=== PATIENT | female | born 1950 | race Caucasian/White ===

== ENCOUNTER 2017-09-22 07:12 | Day surgery (SDC) | payer OTHER ==
[~2017-09-22] VITALS: Ht 160 cm; Wt 126.8 kg
[~2017-09-22 07:12] MED LIST: ALBIPROI; ALBIPROI INH; ALBU.083IS; ALBU90OI INH; ASCO500 PO; ASPI81EC; Advair Hfa 230-12 GM INH; Amaryl1 MG PO; BENAML10/5; BENAML20/5; BUPR100 PO; BUPR150T2; BUPR75 PO; CALCAVITD PO; CALCIUM ANTACI200 MG PO; CEPH500; CEPH500 PO; CHOL10002 PO; CLARITIN10 MG PO; CLON.5; CLON.5 PO; COMBIVENT RESPIM4 GM; CYCL10 PO; ENABLEX; EZET10; FLUSAL1005; FLUSAL1005 IH; FURO40; FURO40 PO; FURO80; Ferrous Sulfat325 M2 PO; GABA300; GABA600; GABA600 PO; GEMF600; GEMF600 PO; GLIM2 PO; HYDACE10B PO; HYDACE5; HYDACE5 PO; HYDACE7.5; IBUHYD; LORA10ER PO; LOVA40; MECL25 PO; METF500C; METO2.5; METO2.5 PO; METO25ER; MIRALAX17 GM PO; MULVITMINE; Medi-Meclizine25 MG PO; NAPR500 PO; Norco 5-325 Ta1 EACH PO; OMEP20ER; OXYB5 PO; OXYC5 PO; PIOG15; PIOG45 PO; POTA8; POTASSIUM; POTCHL20ER; POTCHL20ER PO; PROACE100 PO; PROM25 PO; Prilosec Otc20 MG PO; QUIN325; ROSU10TA PO; RXPROACE PO; SENN187 PO; SERT100; SERT100 PO; SPIR25 PO; Senna Laxative8.6 MG; TRAZ100; TRAZ100 PO; TRAZ50
== END 2017-09-22 22:49 | disposition home or self-care (01) ==
LOC: MHTC 07:12
PROC: 3E033TZ Introduction of Destructive Agent into Peripheral Vein, Percutaneous Approach (ICD-10-PCS; principal; 2017-09-22)
DX: I83.811 Varicose veins of right lower extremity with pain (principal); I87.2 Venous insufficiency (chronic) (peripheral); E66.01 Morbid (severe) obesity due to excess calories; I12.9 Hypertensive chronic kidney disease with stage 1 through stage 4 chronic kidney disease, or unspecified chronic kidney disease; E11.42 Type 2 diabetes mellitus with diabetic polyneuropathy; J44.9 Chronic obstructive pulmonary disease, unspecified; E11.22 Type 2 diabetes mellitus with diabetic chronic kidney disease; N18.9 Chronic kidney disease, unspecified; E78.5 Hyperlipidemia, unspecified; F32.9 Major depressive disorder, single episode, unspecified; F17.210 Nicotine dependence, cigarettes, uncomplicated; G47.33 Obstructive sleep apnea (adult) (pediatric)
CPT/HCPCS: 36466; 99152; J2250; J3010; J7030

== ENCOUNTER 2017-10-11 19:15 | Emergency (ER) | payer OTHER ==
[~2017-10-11] VITALS: Ht 160 cm; Wt 131.5 kg
[2017-10-11] MEDS ORDERED: Percocet 5-3251 EACH PO (20:11)
== END 2017-10-11 20:49 | disposition home or self-care (01) ==
LOC: ER 19:15
DX: S42.215A Unspecified nondisplaced fracture of surgical neck of left humerus, initial encounter for closed fracture (principal); Z88.0 Allergy status to penicillin; Z88.5 Allergy status to narcotic agent; Z79.899 Other long term (current) drug therapy; Z79.84 Long term (current) use of oral hypoglycemic drugs; E11.9 Type 2 diabetes mellitus without complications; F17.200 Nicotine dependence, unspecified, uncomplicated; W18.30XA Fall on same level, unspecified, initial encounter
CPT/HCPCS: 73060; 99283

== ENCOUNTER 2017-10-19 09:53 | Emergency (ER) | payer OTHER ==
[~2017-10-19] VITALS: Ht 167.6 cm; Wt 113.4 kg
[~2017-10-19 09:53] MED LIST changes: +Percocet 5-3251 EACH PO
[2017-10-19] MEDS ORDERED: Percocet 5-3251 EACH PO (10:14)
== END 2017-10-19 10:21 | disposition home or self-care (01) ==
LOC: ER 09:53
DX: S42.212D Unspecified displaced fracture of surgical neck of left humerus, subsequent encounter for fracture with routine healing (principal); E11.9 Type 2 diabetes mellitus without complications; J44.9 Chronic obstructive pulmonary disease, unspecified; I10 Essential (primary) hypertension; E66.01 Morbid (severe) obesity due to excess calories; F32.9 Major depressive disorder, single episode, unspecified; Z88.0 Allergy status to penicillin; Z88.5 Allergy status to narcotic agent; Z79.84 Long term (current) use of oral hypoglycemic drugs; Z79.899 Other long term (current) drug therapy; Z68.41 Body mass index [BMI] 40.0-44.9, adult; Z87.891 Personal history of nicotine dependence; W19.XXXD Unspecified fall, subsequent encounter
CPT/HCPCS: 99282

== ENCOUNTER 2018-04-21 07:16 | Day surgery (SDC) | payer OTHER ==
[~2018-04-21] VITALS: Ht 160 cm; Wt 126.5 kg
== END 2018-04-21 09:19 | disposition home or self-care (01) ==
LOC: ORSCSDS 07:16
PROVIDERS: Ophthalmology
PROC: 08RK3JZ Replacement of Left Lens with Synthetic Substitute, Percutaneous Approach (ICD-10-PCS; principal; 2018-04-21 08:00)
DX: H25.12 Age-related nuclear cataract, left eye (principal); E11.36 Type 2 diabetes mellitus with diabetic cataract; E11.42 Type 2 diabetes mellitus with diabetic polyneuropathy; E05.90 Thyrotoxicosis, unspecified without thyrotoxic crisis or storm; J44.9 Chronic obstructive pulmonary disease, unspecified; I10 Essential (primary) hypertension; G47.33 Obstructive sleep apnea (adult) (pediatric); Z79.899 Other long term (current) drug therapy; E78.00 Pure hypercholesterolemia, unspecified; E66.01 Morbid (severe) obesity due to excess calories; Z68.42 Body mass index [BMI] 45.0-49.9, adult
CPT/HCPCS: 82947; J2250; V2632

== ENCOUNTER 2018-11-30 08:10 | Day surgery (SDC) | payer OTHER | END 2018-11-30 22:39 | disposition home or self-care (01) | LOC: MOI US 08:10 | DX: C50.912 Malignant neoplasm of unspecified site of left female breast (principal); Z17.0 Estrogen receptor positive status [ER+] | CPT/HCPCS: 19083; 77065; 88305; 88360; A4648; G0279 ==

== ENCOUNTER 2018-12-23 06:08 | Day surgery (SDC) | payer OTHER ==
[~2018-12-23] VITALS: Ht 160 cm; Wt 123.3 kg
--- NOTE | 2018-12-23 10:20 | NUR ---
12/23/18 1020 Baljeet Kim CHEST X-RAY TAKEN, REPORT FROM DR. SMITH STATES, "POSSIBLE MINOR PULMONARY EDEMA OR INFECTION." NOTIFIED DR. KENNEY.
== END 2018-12-23 09:44 | disposition home or self-care (01) ==
LOC: ORSCSDS 06:08
PROVIDERS: Surgery
PROC: 05HM33Z Insertion of Infusion Device into Right Internal Jugular Vein, Percutaneous Approach (ICD-10-PCS; principal; 2018-12-23 07:30)
PROC: B5131ZA Fluoroscopy of Right Jugular Veins using Low Osmolar Contrast, Guidance (ICD-10-PCS; principal; 2018-12-23 07:30)
DX: C50.412 Malignant neoplasm of upper-outer quadrant of left female breast (principal); C79.51 Secondary malignant neoplasm of bone; E11.22 Type 2 diabetes mellitus with diabetic chronic kidney disease; E11.40 Type 2 diabetes mellitus with diabetic neuropathy, unspecified; I12.9 Hypertensive chronic kidney disease with stage 1 through stage 4 chronic kidney disease, or unspecified chronic kidney disease; N18.9 Chronic kidney disease, unspecified; J44.9 Chronic obstructive pulmonary disease, unspecified; F17.210 Nicotine dependence, cigarettes, uncomplicated; G47.33 Obstructive sleep apnea (adult) (pediatric); Z79.899 Other long term (current) drug therapy
CPT/HCPCS: 77001; 82947; C1788; J0690; J1100; J1642; J2001; J2250; J2405; J2704; J7120

== ENCOUNTER 2019-07-09 07:39 | Inpatient (IN) | payer OTHER ==
[~2019-07-09] VITALS: Ht 160 cm; Wt 110.3 kg
[~2019-07-09 07:39] MED LIST changes: -COMBIVENT RESPIM4 GM; +COMBIVENT RESPIM4 GM INH; -Senna Laxative8.6 MG; +Senna Laxative8.6 MG PO; +Spironolactone25 MG PO; +THERA1 EACH PO; +Zantac150 MG PO
--- NOTE | 2019-07-09 09:46 | NUR ---
History, Chart, Medications and Allergies reviewed before start of procedure. Patient confirms NPO status and agrees with scheduled surgery. Lungs clear T/O to Auscultation. Pre-Op teaching done. Pt verbalizes understanding. Patient reports completing Chlorhexadine shower X2 prior to admission to hospital. PATIENT HAD NO JEWELRY ON AT ADMIT, DENTURES AND GLASSES WILL BE TAKEN TO PACU. NO CONTACTS OR HEARING DEVICES PRESENT.
--- NOTE | 2019-07-09 09:52 | NUR ---
WAFER FAB OPERATOR REPORT COMPLETED AT BEDSIDE WITH JAILYN MOSQUEDA.
--- NOTE | 2019-07-09 10:20 | NUR ---
PT'S FRIEND, SHAMIR, HAS THE PT'S GLASSES.
--- NOTE | 2019-07-09 17:23 | NUR ---
SHIFT SUMMARY PT ADMITTED TO ROOM AT 1530 S/P L MASTECTOMY, GAUZE/YONNY WRAP/BREAST BINDER, 2 NANCY DRAINS W/ SANGUINOUS OUT. DENIES PAIN AT THIS TIME. VSS, 4L NC; CPAP W/3L OXYGEN BLEED, AND BIOX ORDER IN - AWAITING SET UP BY RT. WILL REPORT TO ONCOMING ILSA GLASER.
--- NOTE | 2019-07-10 04:05 | NUR ---
SHIFT SUMMARY POD 1 S/P LEFT MASTECTOMY W/AXILLARY DISECTION AND NODE REMOVAL. YONNY WRAP AND BREAST BINDER IN PLACE AND APPEAR C/D/I; NO DRAINAGE NOTED T/O SHIFT. NANCY DRAINS #[address], COMPRESSED, AND DRAINING SANGUINEOUS FLUID. VERY DROWSY T/O MOST OF SHIFT, RESPONDS TO STIMULATION AND ABLE TO FOLLOW DIRECTIONS. DENIED PAIN OR DYSCOMFORT. ABLE TO ASSIST WITH REPOSITIONING AND ATTENDS CHANGE. HAD BOTH CONTINENT AND INCONTINENT VOIDS. CPAP IN PLACE W/4L AND SPO2 AT 94%. DENIED SOB OR DYSPNEA. IS CURRENTLY RESTING IN BED WITH CPAP IN PLACE AND CALL LIGHT W/IN REACH.
[2019-07-10 05:18] LABS: BASOPHILS ABSOLUTE AUTO 0.01 K/mm3 (0.00-0.23); BASOPHILS PERCENT AUTO 0 % (0-2); EOSINOPHILS ABSOLUTE AUTO 0.01 K/mm3 (0.00-0.68); EOSINOPHILS PERCENT AUTO 0 % (0-6); Hematocrit 31.3 % (33.0-51.0); Hemoglobin 9.6 g/dL (11.5-16.0); IMMATURE GRAN ABSOLUTE AUTO 0.04 K/mm3 (0.00-0.10); IMMATURE GRAN PERCENT AUTO 0 % (0-1); LYMPHOCYTES ABSOLUTE AUTO 0.73 K/mm3 (0.84-5.20); LYMPHOCYTES PERCENT AUTO 8 % (21-46); MONOCYTES ABSOLUTE AUTO 0.61 K/mm3 (0.16-1.47); MONOCYTES PERCENT AUTO 7 % (4-13); Mean Corpuscular HGB Conc 30.7 g/dL (31.5-36.5); Mean Corpuscular Volume 108 fL (80-100); Mean Platelet Volume 9.8 fL (9.1-12.4); NEUTROPHILS ABSOLUTE AUTO 7.55 K/mm3 (1.96-9.15); NEUTROPHILS PERCENT AUTO 84 % (41-73); Platelet Count 291 K/mm3 (150-400); RDW Coefficient Variation 13.8 % (11.7-14.2); RDW Standard Deviation 54.2 fL (35.1-46.3); Red Blood Cell Count 2.91 M/mm3 (3.80-5.20); White Blood Cell Count 8.95 K/mm3 (4.00-11.30)
[2019-07-10 05:37] LABS: Anion Gap 7 mmol/L (6-16); Blood Urea Nitrogen 14 mg/dL (8-24); Bun/Creatinine Ratio 20.3 (12.0-20.0); CO2, Blood 28 mmol/L (21-32); Calcium, Blood 8.3 mg/dL (8.5-10.1); Chloride, Blood 109 mmol/L (98-108); Creatinine, Blood 0.69 mg/dL (0.40-1.00); Glomerular Filtration Rate >60 (60-); Glucose, Blood 101 mg/dL (70-99); Potassium, Blood 3.8 mmol/L (3.5-5.5); Sodium, Blood 144 mmol/L (136-145)
--- NOTE | 2019-07-10 15:26 | NUR ---
NANCY DRAIN EDUCATION PT WAS ABLE TO EMPTY HER NANCY DRAINS WITH MINIMAL PROMPTING. PT'S ROOMMATE IS WORKING TO HELP FIND FRIENDS/FAMILY WHO WILL BE ABLE TO CHECK ON HER OVER THE NEXT WEEK SINCE HER ROOMMATE WILL NOT BE HOME.
--- NOTE | 2019-07-10 18:02 | NUR ---
SHIFT SUMMARY PAIN HAS BEEN MANAGED WITH PO PAIN MEDICATION. PT HAS CONTINUED TO HAVE MILD CONFUSION/FORGETFULNESS T/O THE DAY. SHE WAS ABLE TO DEMONSTRATE HOW TO EMPTY HER NANCY DRAINS WITH MINIMAL PROMPTING. PT IS A 1 ASSIST WITH GAIT BELT AND WALKER WHEN OOB. TAB ALARM/ BED ALARM HAVE BEEN USED FOR SAFETY SINCE PT IS FORGETFUL AT TIMES. FAMILY AND FRIENDS ARE TRYING TO FIND HELP FOR HER WHEN SHE DISCHARGES HOME; STAFF AND FAMILY HAVE CONCERNS THAT THE PT WILL BE UNABLE TO MANAGE WITHOUT ASSISTANCE. POSSIBLE NEED FOR SNF. PT CONTINUES TO HAVE OUTPUT FROM HER NANCY DRAINS. VSS. WILL MONITOR UNTIL REPORT TO ONCOMING RN.
--- NOTE | 2019-07-11 07:00 | NUR ---
DR. KENNEY ROUNDED ON PT THIS AM TO CHANGE DRESSING. PT WAS ENCOURAGED TO DEMONSTRATE DRESSING CHANGE AND HOW TO EMPTY NANCY DRAIN. WHEN ASKED TO DEMONSTRATE WHAT SHOULD BE DONE WITH THE BULB AFTER IT IS EMPTIED SHE PUT THE CAP BACK ON WITHOUT COMPRESSING THE BULB TO CREATE SUCTION; PT HAS BEEN PREVIOUSLY EDUCATED ABOUT DRAIN CARE. PT WAS UNABLE TO CHANGE HER OWN DRESSING WHICH SHE WILL NEED TO BE ABLE TO DO AT HOME, SHE WAS UNABLE TO PUT HER BREAST BINDER BACK ON AFTER IT WAS REMOVED FOR THE DRESSING CHANGE. IN ADDITION PT WAS UNABLE TO SIT UP FROM A LAYING POSITION WITHOUT ASSISTANCE. SHE REPORTS HER BED IS FLAT WITHOUT HANDLES OR RALES AT HOME. THIS IS ALL OF CONCERN SINCE THE PT WILL NOT HAVE ANYONE TO ASSIST HER AT HOME. HER ROOMMATE WILL BE OUT OF TOWN FOR APPROXIMATELY 1 WEEK, AND FAMILY IS UNABLE TO COME HELP HER AT THIS TIME. PLAN FOR PT TO REMAIN IN HOSPITAL UNTIL TOMORROW WHEN SHE CAN BE EVALUATED BY OCCUPATIONAL THERAPY. PT IS AGREABLE TO SNF IF THAT IS POSSIBLE.
--- NOTE | 2019-07-11 07:34 | NUR ---
PT AWAKE THIS AM WITH DR PABLITO LOPEZ.PT WEAK AND UNCOMFORTABLE WITH ACTIVITY WHILE ATTEMPTING TO WORK DRESSING CHANGE AND JPX2.
--- NOTE | 2019-07-11 10:02 | NUR ---
IV DRESSING CHANGED PT ATTEMPTED TO CLEAN HERSELF AFTER HAVING A BOWEL MOVEMENT, STOOL GOT ON HER IV DRESSING WHEN SHE ATTEMPTED TO CLEAN HERSELF. AREA AROUND IV CLEANSED AND IV DRESSING WAS CHANGED.
--- NOTE | 2019-07-11 18:12 | NUR ---
SHIFT SUMMARY PAIN HAS BEEN MANAGED WITH PO PAIN MEDICATION. SHE HAS BEEN FORGETFUL T/O THE DAY. PT HAS BEEN UNABLE TO EMPTY HER DRAINS WITHOUT PROMPTING. PLAN FOR OT AND PT TO SEE PT TOMORROW, PLAN FOR SNF IF POSSIBLE. PT TOLERATING PO WELL. VSS. WILL MONITOR UNTIL REPORT TO ONCOMING RN.
--- NOTE | 2019-07-12 00:23 | NUR ---
ASSUMED CARE OF PT. PT RESTING IN CHAIR, RESP E/U, SATS 94%, HR 74. NO DISTRESS NOTED. TAB ALARM ON. WILL CONT TO MONITOR AND TX PER ORDERS.
--- NOTE | 2019-07-12 06:15 | NUR ---
POD 3 S/P LEFT MASTECTOMY. PT VSS T/O NIGHT. PAIN MGD PER EMAR W/REP RELIEF. NANCY PUTTING OUT SS DRNG. DRAIN #1 W/MORE OUTPUT. PT UP IN ROOM W/FWW+SBA, KAIT WELL. PT FORGETFUL AT TIMES, TAB ALARM ON FOR SAFETY. WILL CONT TO MONITOR UNTIL REP GIVEN TO ONCOMING RN.
--- NOTE | 2019-07-12 08:28 | NUR ---
07/12/19 0828 Morenita Hoover VERIFICATIONS: EDIT CHART.
--- NOTE | 2019-07-12 15:17 | NUR ---
Kisha tells me that she has been under-going cancer treatments for 2 years. With this surgery, she beleives she is cured. She has a emelia todd and [employer] community. She was appreciaitve of spiritual encouragement and prayer. No fears or concerns presented. Kisha appears well cared-for by nursing. I will remain available.
--- NOTE | 2019-07-12 15:54 | NUR ---
DISCHARGE MS INTO SEE DR PRIOR TO D/C. REPORT CALLED TO RN @ [facility]. SCRIPT SENT WITH PT.
== END 2019-07-12 15:44 | DRG 580 ==
LOC: NM 07:39 → ORSCMMR 07:39 → NM 09:00 → SURS 15:04 → NM 15:04 → ORSCMMR 15:23 → SURS 15:23
PROVIDERS: ADMIT Surgery
PROC: 0HTU0ZZ Resection of Left Breast, Open Approach (ICD-10-PCS; principal; 2019-07-09 10:00)
PROC: 07B60ZX Excision of Left Axillary Lymphatic, Open Approach, Diagnostic (ICD-10-PCS; 2019-07-09 10:00)
DX: C50.412 Malignant neoplasm of upper-outer quadrant of left female breast (principal); C77.3 Secondary and unspecified malignant neoplasm of axilla and upper limb lymph nodes; C79.51 Secondary malignant neoplasm of bone; C50.912 Malignant neoplasm of unspecified site of left female breast; Z17.0 Estrogen receptor positive status [ER+]; E11.40 Type 2 diabetes mellitus with diabetic neuropathy, unspecified; J44.9 Chronic obstructive pulmonary disease, unspecified; E78.5 Hyperlipidemia, unspecified; F32.9 Major depressive disorder, single episode, unspecified; K21.9 Gastro-esophageal reflux disease without esophagitis; E21.3 Hyperparathyroidism, unspecified; I10 Essential (primary) hypertension; E11.36 Type 2 diabetes mellitus with diabetic cataract; G47.33 Obstructive sleep apnea (adult) (pediatric); F17.210 Nicotine dependence, cigarettes, uncomplicated; Z79.84 Long term (current) use of oral hypoglycemic drugs; Z79.899 Other long term (current) drug therapy; Z88.5 Allergy status to narcotic agent; Z88.0 Allergy status to penicillin
CPT/HCPCS: 36415; 38792; 80048; 82947; 85025; 88307; 88331; 94640; 94660; 94762; 97110; 97116; 97161; 97165; 97530; 97535; A9270-GY; A9520; J0690; J1100; J1644; J1885; J2370; J2405; J2704; J3010; J7120; Q9968

== ENCOUNTER 2019-08-04 21:52 | Observation (INO) | payer OTHER ==
[~2019-08-04] VITALS: Ht 160 cm; Wt 101.0 kg
[2019-08-04 22:35] LABS: Source, Urine Clean Catch
[2019-08-04 22:46] LABS: Bilirubin, Urine Neg (Neg); Blood, Urine Neg (Neg); Glucose Qualitative, Urine Neg (Neg); Ketones, Urine 2+ (Neg); Leukocyte Esterase, Urine Neg (Neg); Nitrite, Urine Neg (Neg); Protein, Urine Neg (Neg); Urobilinogen, Urine NORM (Normal)
[2019-08-04 22:47] LABS: Appearance, Urine Clear (Clear); Color, Urine Yellow (P-Yellow)
[2019-08-04 22:50] LABS: PCO2 Arterial 29.1 mmHg (35-45); PO2 Arterial 78.3 mmHg (80-100); pH Blood Arterial 7.52 (7.35-7.45)
[2019-08-04 23:05] LABS: BASOPHILS ABSOLUTE AUTO 0.03 K/mm3 (0.00-0.23); BASOPHILS PERCENT AUTO 1 % (0-2); EOSINOPHILS ABSOLUTE AUTO 0.06 K/mm3 (0.00-0.68); EOSINOPHILS PERCENT AUTO 1 % (0-6); Hematocrit 34.3 % (33.0-51.0); Hemoglobin 11.1 g/dL (11.5-16.0); IMMATURE GRAN ABSOLUTE AUTO 0.01 K/mm3 (0.00-0.10); IMMATURE GRAN PERCENT AUTO 0 % (0-1); LYMPHOCYTES ABSOLUTE AUTO 0.91 K/mm3 (0.84-5.20); LYMPHOCYTES PERCENT AUTO 19 % (21-46); MONOCYTES ABSOLUTE AUTO 0.56 K/mm3 (0.16-1.47); MONOCYTES PERCENT AUTO 12 % (4-13); Mean Corpuscular HGB 32.5 pg (26.0-34.0); Mean Corpuscular HGB Conc 32.4 g/dL (31.5-36.5); Mean Corpuscular Volume 100 fL (80-100); Mean Platelet Volume 9.6 fL (9.1-12.4); NEUTROPHILS ABSOLUTE AUTO 3.24 K/mm3 (1.96-9.15); NEUTROPHILS PERCENT AUTO 68 % (41-73); Platelet Count 412 K/mm3 (150-400); RDW Standard Deviation 51.1 fL (35.1-46.3); Red Blood Cell Count 3.42 M/mm3 (3.80-5.20); White Blood Cell Count 4.81 K/mm3 (4.00-11.30)
[2019-08-04 23:26] LABS: Alanine Aminotransfer (ALT/SGP 25 U/L (12-78); Albumin, Blood 2.7 g/dL (3.4-5.0); Albumin/Globulin Ratio 0.7 (0.8-1.8); Alk Phos 110 U/L (50-136); Anion Gap 10 mmol/L (6-16); Aspartate Aminotrans (AST/SGOT 23 U/L (12-37); Bilirubin, Total 0.4 mg/dL (0.1-1.0); Blood Urea Nitrogen 8 mg/dL (8-24); Bun/Creatinine Ratio 12.5 (12.0-20.0); CO2, Blood 23 mmol/L (21-32); Chloride, Blood 106 mmol/L (98-108); Creatinine, Blood 0.64 mg/dL (0.40-1.00); Glomerular Filtration Rate >60 (60-); Glucose, Blood 108 mg/dL (70-99); Potassium, Blood 4.2 mmol/L (3.5-5.5); Sodium, Blood 139 mmol/L (136-145); Total Protein, Blood 6.7 g/dL (6.4-8.2); Troponin I <0.015 ng/mL (0.000-0.040)
--- NOTE | 2019-08-05 06:30 | NUR ---
ARRIVED FROM er on gur, bsr provided by er staff, orders reviewed, assessments completed, medications provided, rm and dpt protocols explained, tried to sleep, trouble falling assleep, a+o, wound vac changed to hospital model due to low bat on home model, placed home model in closet, note on board to remind pt to take it home with her, up to bsc, 2 l via nc when not on cpap, call light in reach will ontinue to monitor and treat until share bsr with day staff and pt
--- NOTE | 2019-08-05 06:42 | NUR ---
called hospitalist, he said to change diet to regular
--- NOTE | 2019-08-05 07:25 | NUR ---
Bedside report received from Markus Garcia RN. THe pt is sitting up in the chair, getting a breathing treatment, and states that she wants to go home.
--- NOTE | 2019-08-05 08:04 | NUR ---
The pt is calling frequently, states that she wants to go home. She is anxious about this, it appears. Demands to know when the doctor willcome in this morning. Marisol, the food production supervisor, called the hospitalist and explained the pt's demands. I explained to the pt that we are waiting for the doctor, and i understand that she wants to go home. She said that she is sorry to be such a "pain in the butt, but I want to go home!" I expained that I have no control over when the doctor comes, and short of letting her walk out on her own, which I would not like to do, I have no control over her discharge at this time. She said that walking out wouldn't be very good for her, to which i agreed, and said that we are hoping to see the doctor soon this morning. She agreed to wait, and asked for a cup of tea which was promptly provided to her.
--- NOTE | 2019-08-05 09:46 | NUR ---
Pt is waiting for her ride, which will be here at noon. Administered morning scheduled medications.
--- NOTE | 2019-08-05 10:58 | NUR ---
The pt declined to use oxygen on transport to friend's waiting private vehicle, states that she is fine to get home without it. Encouraged pt to stop smoking. She is ambulatory in the room, without assistance, states that she is fine to go home. Sheinsists that she will take care of herself.. Home wound vac was connected to her wound vac dressing tubing in place, when hospital wound vac machine disconneted for discharge. Pt does not have any complaints at this time, other than that she really wants to go home.
--- NOTE | 2019-08-05 11:03 | NUR ---
Spiritual care visit conducted. Patient is standing in patient's room and welcomes my visit. Patient tells me about her medical history, about her family unit complications and about her yazdanism (Sigrid Levy). Patient gets quite emotional during the visit; once when discussing how she wants to go home to be with her dog and cat and once when talking about how much she loves [place]. We discuss and dying and the peace she has about it all. I listen empathically, reinforce helpful attitudes and practices, and provide pastoral curriculum counselor and prayer (and a hug). Patient responds well and shows signsof an elevated mood. I will continue to remain available to patient and family.
[2019-08-06] MEDS ORDERED: ALBU2.5V5 INH (00:41)
[2019-08-06] MEDS ORDERED: Prednisone20 MG PO (00:41)
== END 2019-08-05 11:00 | disposition left against medical advice (07) ==
LOC: ER 21:52 → PCU 21:54 → ER 08-05 00:44 → PCU 08-05 00:44
PROVIDERS: Emergency Medicine; ADMIT Hospitalist
DX: J44.1 Chronic obstructive pulmonary disease with (acute) exacerbation (principal); J96.21 Acute and chronic respiratory failure with hypoxia; F17.210 Nicotine dependence, cigarettes, uncomplicated; G47.33 Obstructive sleep apnea (adult) (pediatric); E11.59 Type 2 diabetes mellitus with other circulatory complications; I10 Essential (primary) hypertension; K21.9 Gastro-esophageal reflux disease without esophagitis; F33.41 Major depressive disorder, recurrent, in partial remission; D50.9 Iron deficiency anemia, unspecified; C50.912 Malignant neoplasm of unspecified site of left female breast; C79.51 Secondary malignant neoplasm of bone; Z17.0 Estrogen receptor positive status [ER+]; Z88.0 Allergy status to penicillin; Z88.5 Allergy status to narcotic agent; Z79.51 Long term (current) use of inhaled steroids; Z79.899 Other long term (current) drug therapy; Z53.29 Procedure and treatment not carried out because of patient's decision for other reasons
CPT/HCPCS: 36415; 36600; 71046; 80053; 81003; 82803; 83605; 84484; 85025; 87040; 93005; 93010; 94640; 94760; 96372; 96374; 96375; 99285-25; G0378; J1650; J2405; J2930; J3010

== ENCOUNTER 2019-08-05 18:32 | Emergency (ER) | payer OTHER ==
[~2019-08-05] VITALS: Ht 160 cm; Wt 99.8 kg
[2019-08-06] MEDS ORDERED: Prednisone20 MG PO (00:41)
[2019-08-06] MEDS ORDERED: ALBU2.5V5 INH (00:41)
[2019-08-06 00:58] LABS: Influenza A Negative (NEGATIVE); Influenza B Negative (NEGATIVE)
== END 2019-08-06 01:25 | disposition home or self-care (01) ==
LOC: ER 18:32
PROVIDERS: Emergency Medicine
DX: J44.1 Chronic obstructive pulmonary disease with (acute) exacerbation (principal); E11.9 Type 2 diabetes mellitus without complications; I10 Essential (primary) hypertension; F32.9 Major depressive disorder, single episode, unspecified; M19.90 Unspecified osteoarthritis, unspecified site; N19 Unspecified kidney failure; E66.01 Morbid (severe) obesity due to excess calories; Z68.39 Body mass index [BMI] 39.0-39.9, adult; Z88.0 Allergy status to penicillin; Z88.5 Allergy status to narcotic agent; Z79.899 Other long term (current) drug therapy; Z87.891 Personal history of nicotine dependence
CPT/HCPCS: 87804; 94644; 99283-25; J7512

== ENCOUNTER 2019-08-09 13:17 | Emergency (ER) | payer OTHER ==
[~2019-08-09] VITALS: Ht 160 cm; Wt 99.8 kg
[~2019-08-09 13:17] MED LIST changes: +ALBU2.5V5 INH; +Prednisone20 MG PO
[2019-08-09 15:10] LABS: Alanine Aminotransfer (ALT/SGP 32 U/L (12-78); Albumin, Blood 2.8 g/dL (3.4-5.0); Albumin/Globulin Ratio 0.7 (0.8-1.8); Alk Phos 111 U/L (50-136); Anion Gap 9 mmol/L (6-16); Aspartate Aminotrans (AST/SGOT 22 U/L (12-37); Bilirubin, Total 0.3 mg/dL (0.1-1.0); Blood Urea Nitrogen 9 mg/dL (8-24); Bun/Creatinine Ratio 11.6 (12.0-20.0); CO2, Blood 25 mmol/L (21-32); Calcium, Blood 8.6 mg/dL (8.5-10.1); Chloride, Blood 107 mmol/L (98-108); Creatinine, Blood 0.78 mg/dL (0.40-1.00); Globulin, Blood 3.8 g/dL (2.2-4.0); Glomerular Filtration Rate >60 (60-); Glucose, Blood 117 mg/dL (70-99); Potassium, Blood 4.1 mmol/L (3.5-5.5); Sodium, Blood 141 mmol/L (136-145); Total Protein, Blood 6.6 g/dL (6.4-8.2)
== END 2019-08-09 15:30 | disposition home or self-care (01) ==
LOC: ER 13:17
PROVIDERS: Emergency Medicine
DX: L76.22 Postprocedural hemorrhage of skin and subcutaneous tissue following other procedure (principal); J44.9 Chronic obstructive pulmonary disease, unspecified; E11.9 Type 2 diabetes mellitus without complications; J45.909 Unspecified asthma, uncomplicated; I10 Essential (primary) hypertension; F32.9 Major depressive disorder, single episode, unspecified; F17.200 Nicotine dependence, unspecified, uncomplicated; Z85.3 Personal history of malignant neoplasm of breast; Z90.12 Acquired absence of left breast and nipple
CPT/HCPCS: 36415; 80053; 99283

== ENCOUNTER 2019-11-19 16:35 | Emergency (ER) | payer OTHER ==
[~2019-11-19] VITALS: Ht 165.1 cm; Wt 90.7 kg
[2019-11-19 17:24] LABS: BASOPHILS ABSOLUTE AUTO 0.02 K/mm3 (0.00-0.23); BASOPHILS PERCENT AUTO 0 % (0-2); EOSINOPHILS ABSOLUTE AUTO 0.07 K/mm3 (0.00-0.68); EOSINOPHILS PERCENT AUTO 1 % (0-6); Hematocrit 36.1 % (33.0-51.0); Hemoglobin 11.6 g/dL (11.5-16.0); IMMATURE GRAN ABSOLUTE AUTO 0.01 K/mm3 (0.00-0.10); IMMATURE GRAN PERCENT AUTO 0 % (0-1); LYMPHOCYTES ABSOLUTE AUTO 1.04 K/mm3 (0.84-5.20); LYMPHOCYTES PERCENT AUTO 17 % (21-46); MONOCYTES ABSOLUTE AUTO 0.52 K/mm3 (0.16-1.47); MONOCYTES PERCENT AUTO 9 % (4-13); Mean Corpuscular HGB 31.1 pg (26.0-34.0); Mean Corpuscular HGB Conc 32.1 g/dL (31.5-36.5); Mean Corpuscular Volume 97 fL (80-100); Mean Platelet Volume 10.1 fL (9.1-12.4); NEUTROPHILS ABSOLUTE AUTO 4.33 K/mm3 (1.96-9.15); NEUTROPHILS PERCENT AUTO 72 % (41-73); Platelet Count 305 K/mm3 (150-400); RDW Coefficient Variation 14.1 % (11.7-14.2); RDW Standard Deviation 49.6 fL (35.1-46.3); Red Blood Cell Count 3.73 M/mm3 (3.80-5.20); White Blood Cell Count 5.99 K/mm3 (4.00-11.30)
[2019-11-19 17:41] LABS: Alanine Aminotransfer (ALT/SGP 34 U/L (12-78); Albumin/Globulin Ratio 0.8 (0.8-1.8); Alk Phos 146 U/L (50-136); Anion Gap 7 mmol/L (6-16); Aspartate Aminotrans (AST/SGOT 28 U/L (12-37); Bilirubin, Total 0.3 mg/dL (0.1-1.0); Blood Urea Nitrogen 10 mg/dL (8-24); CO2, Blood 25 mmol/L (21-32); Calcium, Blood 8.8 mg/dL (8.5-10.1); Chloride, Blood 108 mmol/L (98-108); Creatinine, Blood 0.63 mg/dL (0.40-1.00); Globulin, Blood 3.8 g/dL (2.2-4.0); Glomerular Filtration Rate >60 (60-); Glucose, Blood 94 mg/dL (70-99); Potassium, Blood 3.4 mmol/L (3.5-5.5); Sodium, Blood 140 mmol/L (136-145); Total Protein, Blood 6.8 g/dL (6.4-8.2)
== END 2019-11-19 20:47 | disposition home or self-care (01) ==
LOC: ER 16:35
PROVIDERS: Emergency Medicine
DX: F41.9 Anxiety disorder, unspecified (principal); E87.6 Hypokalemia; J44.9 Chronic obstructive pulmonary disease, unspecified; I10 Essential (primary) hypertension; F32.9 Major depressive disorder, single episode, unspecified; M19.90 Unspecified osteoarthritis, unspecified site; N19 Unspecified kidney failure; Z88.0 Allergy status to penicillin; Z88.5 Allergy status to narcotic agent; Z79.899 Other long term (current) drug therapy
CPT/HCPCS: 71046; 80053; 85025; 93005; 93010; 99284-25

== ENCOUNTER → 2019-12-23 | Outpatient (CLI) | payer OTHER | END | disposition home or self-care (01) | LOC: LAB SHORT 07:50 → PLD 07:50 | DX: D37.030 Neoplasm of uncertain behavior of the parotid salivary glands (principal) | CPT/HCPCS: 88173 ==

== ENCOUNTER 2020-02-14 19:11 | Emergency (ER) | payer OTHER ==
[~2020-02-14] VITALS: Ht 160 cm; Wt 93.9 kg
[~2020-02-14 19:11] MED LIST changes: -Advair Hfa 230-12 GM INH; -Amaryl1 MG PO; -COMBIVENT RESPIM4 GM INH; -GABA600; -Senna Laxative8.6 MG PO
[2020-02-16] MEDS ORDERED: COMBIVENT RESPIM4 G1 INH (16:08)
[2020-02-16] MEDS ORDERED: GABA600 PO (16:11)
[2020-02-16] MEDS ORDERED: TRAZ100 PO (16:12)
[2020-02-16] MEDS ORDERED: GABAPENTIN600 MG PO (16:12)
[2020-02-16] MEDS ORDERED: FLUTICASONE-SA1 EAC9 INH (16:13)
[2020-02-16] MEDS ORDERED: FURO40 PO (16:14)
[2020-02-16] MEDS ORDERED: POTCHL20ER PO ×2 (16:15→16:16)
[2020-02-16] MEDS ORDERED: ANAS1 PO (16:16)
[2020-02-16] MEDS ORDERED: SERT100 PO (16:17)
[2020-02-16] MEDS ORDERED: OXYB5 PO (16:18)
[2020-02-16] MEDS ORDERED: Crestor20 MG PO (16:19)
[2020-02-16] MEDS ORDERED: ZOLOFT100 MG PO (16:19)
[2020-02-16] MEDS ORDERED: PIOG45 PO (16:20)
[2020-02-16] MEDS ORDERED: Senna Laxative8.6 MG PO (16:20)
[2020-02-16] MEDS ORDERED: BUPR75 PO (16:20)
[2020-02-16] MEDS ORDERED: Amaryl1 MG PO (16:20)
[2020-02-16] MEDS ORDERED: FLUT1DIS5 INH (19:10)
[2020-02-16] MEDS ORDERED: Norco 5-325 Ta1 EACH PO (21:11)
== END 2020-02-14 22:12 | disposition home or self-care (01) ==
LOC: ER 19:11
DX: S61.412A Laceration without foreign body of left hand, initial encounter (principal); S51.012A Laceration without foreign body of left elbow, initial encounter; M25.511 Pain in right shoulder; M25.512 Pain in left shoulder; Z88.0 Allergy status to penicillin; Z88.5 Allergy status to narcotic agent; Z79.899 Other long term (current) drug therapy; J44.9 Chronic obstructive pulmonary disease, unspecified; E11.9 Type 2 diabetes mellitus without complications; I10 Essential (primary) hypertension; F32.9 Major depressive disorder, single episode, unspecified; N19 Unspecified kidney failure; Z23 Encounter for immunization; W19.XXXA Unspecified fall, initial encounter
CPT/HCPCS: 73030; 90471; 90714; 99284-25

== ENCOUNTER 2020-04-05 16:14 | Emergency (ER) | payer OTHER ==
[~2020-04-05] VITALS: Ht 160 cm; Wt 90.7 kg
[~2020-04-05 16:14] MED LIST changes: +ANAS1 PO; +Amaryl1 MG PO; +COMBIVENT RESPIM4 G1 INH; +Crestor20 MG PO; +FLUT1DIS5 INH; +FLUTICASONE-SA1 EAC9 INH; +GABAPENTIN600 MG PO; +Senna Laxative8.6 MG PO; +ZOLOFT100 MG PO
[2020-04-05] MEDS ORDERED: NEURONTIN300 MG PO (16:29)
[2020-04-05] MEDS ORDERED: ROSUVASTATIN CA40 MG PO (16:29)
[2020-04-05] MEDS ORDERED: Loratadine10 MG PO (16:30)
[2020-04-05] MEDS ORDERED: FLUTICASONE-SA1 EAC9 INH (16:31)
[2020-04-05] MEDS ORDERED: Potassium Chlo20 ME1 PO (16:34)
[2020-04-05 17:45] LABS: BASOPHILS ABSOLUTE AUTO 0.04 K/mm3 (0.00-0.23); BASOPHILS PERCENT AUTO 1 % (0-2); EOSINOPHILS ABSOLUTE AUTO 0.05 K/mm3 (0.00-0.68); EOSINOPHILS PERCENT AUTO 1 % (0-6); Hematocrit 25.9 % (33.0-51.0); Hemoglobin 7.9 g/dL (11.5-16.0); IMMATURE GRAN ABSOLUTE AUTO 0.03 K/mm3 (0.00-0.10); IMMATURE GRAN PERCENT AUTO 0 % (0-1); LYMPHOCYTES PERCENT AUTO 8 % (21-46); MONOCYTES ABSOLUTE AUTO 0.56 K/mm3 (0.16-1.47); MONOCYTES PERCENT AUTO 7 % (4-13); Mean Corpuscular HGB 29.8 pg (26.0-34.0); Mean Corpuscular HGB Conc 30.5 g/dL (31.5-36.5); Mean Corpuscular Volume 98 fL (80-100); Mean Platelet Volume 10.5 fL (9.1-12.4); NEUTROPHILS ABSOLUTE AUTO 6.34 K/mm3 (1.96-9.15); NEUTROPHILS PERCENT AUTO 83 % (41-73); Platelet Count 407 K/mm3 (150-400); RDW Standard Deviation 53.1 fL (35.1-46.3); Red Blood Cell Count 2.65 M/mm3 (3.80-5.20); White Blood Cell Count 7.62 K/mm3 (4.00-11.30)
[2020-04-05 17:55] LABS: Source, Urine Clean Catch
[2020-04-05 17:57] LABS: Appearance, Urine Hazy (Clear); Bilirubin, Urine Neg (Neg); Blood, Urine 1+ (Neg); Color, Urine Yellow (P-Yellow); Glucose Qualitative, Urine Neg (Neg); Ketones, Urine 3+ (Neg); Leukocyte Esterase, Urine 3+ (Neg); Nitrite, Urine Pos (Neg); Protein, Urine 2+ (Neg); Urobilinogen, Urine NORM (Normal)
[2020-04-05 18:02] LABS: Alanine Aminotransfer (ALT/SGP 40 U/L (12-78); Albumin, Blood 2.5 g/dL (3.4-5.0); Albumin/Globulin Ratio 0.5 (0.8-1.8); Alk Phos 166 U/L (50-136); Anion Gap 7 mmol/L (6-16); Aspartate Aminotrans (AST/SGOT 55 U/L (12-37); Bilirubin, Total 0.6 mg/dL (0.1-1.0); Blood Urea Nitrogen 12 mg/dL (8-24); Bun/Creatinine Ratio 13.8 (12.0-20.0); CO2, Blood 24 mmol/L (21-32); Calcium, Blood 8.6 mg/dL (8.5-10.1); Chloride, Blood 110 mmol/L (98-108); Creatinine, Blood 0.87 mg/dL (0.40-1.00); Globulin, Blood 4.7 g/dL (2.2-4.0); Glomerular Filtration Rate >60 (60-); Glucose, Blood 91 mg/dL (70-99); Potassium, Blood 3.9 mmol/L (3.5-5.5); Sodium, Blood 141 mmol/L (136-145); Total Protein, Blood 7.2 g/dL (6.4-8.2)
[2020-04-05 18:08] LABS: Bacteria Many /hpf; Squamous Epithelial Cells Few /hpf (Few); White Blood Cells, Urine TNTC /hpf (0-5)
[2020-04-05] MEDS ORDERED: CEFP200 PO (18:48)
[2020-04-06] MEDS ORDERED: FLUTICASONE-SA1 EAC9 INH (17:46)
== END 2020-04-05 19:28 | disposition home or self-care (01) ==
LOC: ER 16:14
PROVIDERS: Physician Assistant
DX: N39.0 Urinary tract infection, site not specified (principal); J44.9 Chronic obstructive pulmonary disease, unspecified; E11.9 Type 2 diabetes mellitus without complications; I10 Essential (primary) hypertension; F32.9 Major depressive disorder, single episode, unspecified; J45.909 Unspecified asthma, uncomplicated; F17.210 Nicotine dependence, cigarettes, uncomplicated; Z79.899 Other long term (current) drug therapy
CPT/HCPCS: 36415; 51701; 74176; 80053; 81001; 85025; 87077; 87086; 87186; 99284-25; A9270-GY

== ENCOUNTER 2020-04-06 13:19 | Inpatient (IN) | payer OTHER ==
[~2020-04-06] VITALS: Ht 162.6 cm; Wt 91.0 kg
[~2020-04-06 13:19] MED LIST changes: +CEFP200 PO; +Loratadine10 MG PO; +NEURONTIN300 MG PO; +Potassium Chlo20 ME1 PO; +ROSUVASTATIN CA40 MG PO
[2020-04-06 17:01] LABS: BASOPHILS ABSOLUTE AUTO 0.03 K/mm3 (0.00-0.23); BASOPHILS PERCENT AUTO 0 % (0-2); EOSINOPHILS ABSOLUTE AUTO 0.06 K/mm3 (0.00-0.68); EOSINOPHILS PERCENT AUTO 1 % (0-6); Hematocrit 28.1 % (33.0-51.0); Hemoglobin 8.5 g/dL (11.5-16.0); IMMATURE GRAN ABSOLUTE AUTO 0.02 K/mm3 (0.00-0.10); IMMATURE GRAN PERCENT AUTO 0 % (0-1); LYMPHOCYTES ABSOLUTE AUTO 0.57 K/mm3 (0.84-5.20); LYMPHOCYTES PERCENT AUTO 8 % (21-46); MONOCYTES ABSOLUTE AUTO 0.61 K/mm3 (0.16-1.47); MONOCYTES PERCENT AUTO 8 % (4-13); Mean Corpuscular HGB 29.8 pg (26.0-34.0); Mean Corpuscular HGB Conc 30.2 g/dL (31.5-36.5); Mean Corpuscular Volume 99 fL (80-100); Mean Platelet Volume 10.4 fL (9.1-12.4); NEUTROPHILS ABSOLUTE AUTO 6.06 K/mm3 (1.96-9.15); NEUTROPHILS PERCENT AUTO 82 % (41-73); Platelet Count 428 K/mm3 (150-400); RDW Coefficient Variation 15.5 % (11.7-14.2); RDW Standard Deviation 55.2 fL (35.1-46.3); Red Blood Cell Count 2.85 M/mm3 (3.80-5.20); White Blood Cell Count 7.35 K/mm3 (4.00-11.30)
[2020-04-06 17:22] LABS: Albumin, Blood 2.5 g/dL (3.4-5.0); Albumin/Globulin Ratio 0.5 (0.8-1.8); Bilirubin, Total 0.4 mg/dL (0.1-1.0); Bun/Creatinine Ratio 10.1 (12.0-20.0); Calcium, Blood 8.7 mg/dL (8.5-10.1); Creatinine, Blood 0.99 mg/dL (0.40-1.00); Potassium, Blood 3.7 mmol/L (3.5-5.5); Total Protein, Blood 7.5 g/dL (6.4-8.2)
[2020-04-06] MEDS ORDERED: FLUTICASONE-SA1 EAC9 INH (17:46)
[2020-04-06 19:12] LABS: Percent Saturation 16.5 % (15.0-50.0)
--- NOTE | 2020-04-07 04:59 | NUR ---
BUSINESS TRANSFORMATION ANALYST SUMMARY PT ADMITTED TO UNIT AT 1845 VIA STRETCHER. PT IS A/O X4. AMBULATES WITH 1 ASSIST AND FWW. PT HAS DISCOMFORT IN PERIORITAL AREA THAT WAS MEDICATED WITH TYLENOL. PT CAN BARELY OPEN HER EYES DUE TO PERIORBITAL EDEMA. BILATERAL EYES ARE CRUSTY, RED AND SWOLLEN. EYE DROPS APPLIED TO HELP WITH IRRITATION. VSS. CALLS APPROPRIATELY.
[2020-04-07 05:17] LABS: BASOPHILS ABSOLUTE AUTO 0.02 K/mm3 (0.00-0.23); BASOPHILS PERCENT AUTO 0 % (0-2); EOSINOPHILS ABSOLUTE AUTO 0.22 K/mm3 (0.00-0.68); EOSINOPHILS PERCENT AUTO 3 % (0-6); Hematocrit 25.3 % (33.0-51.0); Hemoglobin 7.7 g/dL (11.5-16.0); IMMATURE GRAN ABSOLUTE AUTO 0.03 K/mm3 (0.00-0.10); IMMATURE GRAN PERCENT AUTO 0 % (0-1); LYMPHOCYTES ABSOLUTE AUTO 0.26 K/mm3 (0.84-5.20); LYMPHOCYTES PERCENT AUTO 4 % (21-46); MONOCYTES ABSOLUTE AUTO 0.52 K/mm3 (0.16-1.47); MONOCYTES PERCENT AUTO 7 % (4-13); Mean Corpuscular HGB 29.8 pg (26.0-34.0); Mean Corpuscular HGB Conc 30.4 g/dL (31.5-36.5); Mean Corpuscular Volume 98 fL (80-100); Mean Platelet Volume 10.6 fL (9.1-12.4); NEUTROPHILS ABSOLUTE AUTO 6.44 K/mm3 (1.96-9.15); NEUTROPHILS PERCENT AUTO 86 % (41-73); Platelet Count 364 K/mm3 (150-400); RDW Coefficient Variation 15.5 % (11.7-14.2); RDW Standard Deviation 55.3 fL (35.1-46.3); Red Blood Cell Count 2.58 M/mm3 (3.80-5.20); White Blood Cell Count 7.49 K/mm3 (4.00-11.30)
[2020-04-07 05:38] LABS: Albumin, Blood 2.2 g/dL (3.4-5.0); Albumin/Globulin Ratio 0.6 (0.8-1.8); Bilirubin, Total 0.3 mg/dL (0.1-1.0); Bun/Creatinine Ratio 10.7 (12.0-20.0); Calcium, Blood 7.8 mg/dL (8.5-10.1); Creatinine, Blood 1.03 mg/dL (0.40-1.00); Globulin, Blood 3.8 g/dL (2.2-4.0); Potassium, Blood 3.6 mmol/L (3.5-5.5)
--- NOTE | 2020-04-07 10:32 | NUR ---
CONTATCTED DR. POZO'S OFFICE IN REGARDS TO A CONSULT @ 1030. PLAYGROUND SUPERVISOR STATED HE HEARD ABOUT THIS CASE LAST NIGHT AND PLANS TO BE BY AFTER LUNCH, POSSIBLY AROUND 1400.
--- NOTE | 2020-04-07 17:29 | NUR ---
SHIFT SUMMARY NO ACUTE CHANGES T/O SHIFT. A&O X4, AMBULATED TO BSC AND BATHROOM TODAY WITH MINIMAL ASSISTANCE. PT UP IN CHAIR FOR ALL MEALS. PT REALLY WANTS TO GO HOME BUT I EXPLAINED TO HER THAT SHE IS RECIEVING IV ABX AND THE DATE OF D/C HAS NOT BEEN CONFIRMED. PT UNDERSTOOD. EYES HAVE IMPROVED SINCE YESTERDAY, PT STATES SHE CAN SEE AND HER EYES ARE MORE OPEN THAN YESTERDAY. SHE HAS RECIEVED TYLENOL AND EYE DROPS FOR THE DISCOMFORT. PT DOES NOT WANT ANYTHING STRONGER THAN TYLENOL AT THIS TIME. DR. POZO WAS AT BEDSIDE TODAY FOR EYE CONSULT. NICOTINE PATCH DOSE INCREASED TO 21 MG PER PT REQUEST AND PROVIDER ORDER. NEW DOSE TO BEGIN TOMORROW.
--- NOTE | 2020-04-08 04:24 | NUR ---
SHIFT SUMMARY: PT IS ALERT AND ORIENTED WITH MINOR INTERMITTENT CONFUSION. PT IS CALM, FRIENDLY, AND COOPERATIVE WITH CARE. PT CALLS APPROPRIATELY. PT IS A STANDBY ASSIST TO THE BATHROOM. PT REPORTS [place] IN THE INDUSTRIAL SPECIALIST, GAVE PRN TYLENOL. PT DENIES NAUSEA, VOMITING, AND SOB. PT WORE CPAP OVERNIGHT. PT SLEPT MUCH OF THE EVENING WHEN NOT DISTURBED. NO ACUTE CHANGES OR COMPLICATIONS THIS SHIFT. BED IN LOW POSITION, CALL LIGHT WITHIN REACH. WILL CONTINUE TO MONITOR.
[2020-04-08 04:35] LABS: BASOPHILS ABSOLUTE AUTO 0.02 K/mm3 (0.00-0.23); BASOPHILS PERCENT AUTO 0 % (0-2); EOSINOPHILS ABSOLUTE AUTO 0.37 K/mm3 (0.00-0.68); EOSINOPHILS PERCENT AUTO 5 % (0-6); Hematocrit 24.6 % (33.0-51.0); Hemoglobin 7.4 g/dL (11.5-16.0); IMMATURE GRAN ABSOLUTE AUTO 0.03 K/mm3 (0.00-0.10); IMMATURE GRAN PERCENT AUTO 0 % (0-1); LYMPHOCYTES ABSOLUTE AUTO 0.39 K/mm3 (0.84-5.20); LYMPHOCYTES PERCENT AUTO 5 % (21-46); MONOCYTES ABSOLUTE AUTO 0.54 K/mm3 (0.16-1.47); MONOCYTES PERCENT AUTO 7 % (4-13); Mean Corpuscular HGB 29.8 pg (26.0-34.0); Mean Corpuscular HGB Conc 30.1 g/dL (31.5-36.5); Mean Corpuscular Volume 99 fL (80-100); Mean Platelet Volume 10.9 fL (9.1-12.4); NEUTROPHILS ABSOLUTE AUTO 6.13 K/mm3 (1.96-9.15); NEUTROPHILS PERCENT AUTO 82 % (41-73); Platelet Count 331 K/mm3 (150-400); RDW Coefficient Variation 15.8 % (11.7-14.2); Red Blood Cell Count 2.48 M/mm3 (3.80-5.20); White Blood Cell Count 7.48 K/mm3 (4.00-11.30)
[2020-04-08 04:59] LABS: Bun/Creatinine Ratio 11.4 (12.0-20.0); Calcium, Blood 8.1 mg/dL (8.5-10.1); Creatinine, Blood 1.14 mg/dL (0.40-1.00); Potassium, Blood 3.8 mmol/L (3.5-5.5)
[2020-04-08 05:02] LABS: Vancomycin, Trough 16.8 ug/mL (5.0-10.0)
--- NOTE | 2020-04-08 15:57 | NUR ---
SHIFT SUMMARY PT RESTING QUIETLY ON CPAP DURING SHIFT REPORT. WOKE EASILY FOR CARE, SITTING UP TO EOB. PT REQUESTED ASSIST TO BTHRM; 1P SBA WITH FWW. PT HAS BEEN PLEASANT AND CO-OP, HOPING TO GO HOME TODAY. DR PATEL IN TO SEE PT; DISCUSSED H/H DECREASE. STOOL GUIAC ORDERED. PT AWARE, BUT HAS NOT HAD TO HAVE BM TODAY. DR PATEL WANTS TO MAKE SURE PT DOES NOT HAVE GI BLEED BEFORE GOING HOME. PT DID C/O IRRITATION IN R EYE; BOTH EYES REMAIN RED AND SWOLLEN. DR PATEL ORDERED STEROID AND ABX EYE DROPS, WHICH PT REPORTED HELPED ALOT. NO FURTHER C/O ABOUT EYES BOTHERING HER. USED ARTIFICIAL TEARS A COUPLE OF TIMES, BEFORE RECEIVING MEDICATED EYE DROPS, BUT THEY WERE NOT VERY EFFECTIVE IN COMPARISON. PT HAS BEEN SITTING UP TO EOB WATCHING TV MOST OF THE DAY. DID TAKE A SHORT NAP. REPORTED HAVING A H/A RECENTLY. MEDICATED WITH TYLENOL PER PT REQUEST. CALL LT IN REACH.
--- NOTE | 2020-04-09 04:19 | NUR ---
SHIFT SUMMARY PT REPORTS MINIMAL ORBITAL PAIN THIS SHIFT AND SHE FINDS RELIEF WITH SCHEDULED EYE DROPS. PT HAS RESTED MOST THE NIGHT. A/OX4, PLESANT WITH CARE. VITALS ARE STABLE. IV ABX PER ORDERS. MEDIPORT ACESS IN PLACE WITH IV RUNNING TKO. NO ACUTE CHANGES OVERNIGHT. BED IN LOWEST POSITION, CALLL LIGHT WITHIN REACH. WILL CONTINUE TO MONITOR AND REPORT TO ONCOMING RN.
[2020-04-09 04:26] LABS: BASOPHILS ABSOLUTE AUTO 0.04 K/mm3 (0.00-0.23); BASOPHILS PERCENT AUTO 1 % (0-2); EOSINOPHILS ABSOLUTE AUTO 0.34 K/mm3 (0.00-0.68); EOSINOPHILS PERCENT AUTO 5 % (0-6); Hematocrit 25.7 % (33.0-51.0); Hemoglobin 7.6 g/dL (11.5-16.0); IMMATURE GRAN ABSOLUTE AUTO 0.03 K/mm3 (0.00-0.10); IMMATURE GRAN PERCENT AUTO 0 % (0-1); LYMPHOCYTES ABSOLUTE AUTO 0.43 K/mm3 (0.84-5.20); LYMPHOCYTES PERCENT AUTO 6 % (21-46); MONOCYTES ABSOLUTE AUTO 0.56 K/mm3 (0.16-1.47); MONOCYTES PERCENT AUTO 8 % (4-13); Mean Corpuscular HGB Conc 29.6 g/dL (31.5-36.5); Mean Corpuscular Volume 102 fL (80-100); Mean Platelet Volume 10.6 fL (9.1-12.4); NEUTROPHILS ABSOLUTE AUTO 5.82 K/mm3 (1.96-9.15); NEUTROPHILS PERCENT AUTO 81 % (41-73); Platelet Count 307 K/mm3 (150-400); RDW Coefficient Variation 16.1 % (11.7-14.2); RDW Standard Deviation 59.2 fL (35.1-46.3); Red Blood Cell Count 2.53 M/mm3 (3.80-5.20); White Blood Cell Count 7.22 K/mm3 (4.00-11.30)
[2020-04-09] MEDS ORDERED: Maxidex15 ML BOTHEYES (10:54)
[2020-04-09] MEDS ORDERED: LIQUITEARS BOTHEYES (10:55)
[2020-04-09] MEDS ORDERED: SPIR25 PO (10:55)
[2020-04-09] MEDS ORDERED: Tobrex5 ML BOTHEYES (10:56)
[2020-04-09] MEDS ORDERED: PROBIOTIC PO (10:56)
[2020-04-09] MEDS ORDERED: DOXY100 PO (10:56)
--- NOTE | 2020-04-09 11:34 | NUR ---
Patient was offered a shower and she declined as she is being discharged and prefers to take one at home. RN notified.
--- NOTE | 2020-04-09 14:34 | NUR ---
DISCHARGE SUMMARY BEATRIZ LEFT WITH [facility] TRANSPORT TO GO HOME. PIV REMOVED, MEDIPORT DEACCESSED. [facility] STICKERS AT FRONT FOR CM TO MAKE F/U APPTS FOR PT, PT IS AWARE THAT THEY WILL CALL HER TOMORROW WITH TIMES AND DATES. BELONGINGS SENT WITH PT. EYES STILL RED AND PERIORBITAL AREAS SWOLLEN, DROPS APPLIED
== END 2020-04-09 14:27 | disposition home or self-care (01) | DRG 603 ==
LOC: ER 13:19 → MEDS 18:30 → ENPENDDIS 04-09 14:08 → MEDS 04-09 14:27
PROVIDERS: Internal Medicine; Physician Assistant; ADMIT Internal Medicine
DX: L03.213 Periorbital cellulitis (principal); N13.30 Unspecified hydronephrosis; E66.01 Morbid (severe) obesity due to excess calories; Z90.12 Acquired absence of left breast and nipple; C50.919 Malignant neoplasm of unspecified site of unspecified female breast; E11.9 Type 2 diabetes mellitus without complications; Z98.84 Bariatric surgery status; I10 Essential (primary) hypertension; E03.9 Hypothyroidism, unspecified; M60.9 Myositis, unspecified; D63.8 Anemia in other chronic diseases classified elsewhere; E59 Dietary selenium deficiency; L25.9 Unspecified contact dermatitis, unspecified cause; F17.210 Nicotine dependence, cigarettes, uncomplicated; Z68.35 Body mass index [BMI] 35.0-35.9, adult; Z79.84 Long term (current) use of oral hypoglycemic drugs
CPT/HCPCS: 36415; 70450; 70481; 80048; 80053; 80202; 82306; 82550; 82607; 82728; 82746; 82947; 83540; 83550; 84146; 84439; 84443; 85025; 94640; 94660; 94760; 94762; 96365-59; 96367-59; 99285-25; A9270; J0696; J1642; J1650; J3370; J7050; Q9967

== ENCOUNTER 2020-05-18 12:39 | Inpatient (IN) | payer OTHER ==
[~2020-05-18] VITALS: Ht 160 cm; Wt 86.9 kg
[~2020-05-18 12:39] MED LIST changes: +ARTIFICIAL TEAR15 M2 BOTHEYES; +DOXY100 PO; +Maxidex15 ML BOTHEYES; +PROBIOTIC PO; +Tobrex5 ML BOTHEYES
[2020-05-18 16:55] LABS: Source, Urine Clean Catch
[2020-05-18 17:02] LABS: Bilirubin, Urine Neg (Neg); Blood, Urine 3+ (Neg); Glucose Qualitative, Urine Neg (Neg); Ketones, Urine Neg (Neg); Leukocyte Esterase, Urine 3+ (Neg); Nitrite, Urine Neg (Neg); Protein, Urine 1+ (Neg); Urobilinogen, Urine NORM (Normal)
[2020-05-18 17:15] LABS: Appearance, Urine Cloudy (Clear); Color, Urine Yellow (P-Yellow)
[2020-05-18 17:18] LABS: Bacteria Many /hpf; Squamous Epithelial Cells Few /hpf (Few); White Blood Cells, Urine TNTC /hpf (0-5)
[2020-05-18] MEDS ORDERED: OXYB5 PO (18:01)
[2020-05-18] MEDS ORDERED: TRAZ100 PO (18:01)
[2020-05-18] MEDS ORDERED: SPIRONOLACTONE25 MG PO (18:15)
[2020-05-18] MEDS ORDERED: MAXIDEX5 ML BOTHEYES (18:44)
--- NOTE | 2020-05-18 20:18 | NUR ---
1950 PT ADMITTED TO ROOM 339 PER CART FROM ER; REPORT RECEIVED FROM JAILYN HARTLEY; PT SLIDE FROM CART TO BED VIA SLIDER SHEET X 4 ASSIST; DENIES PAIN OR NAUSEA; ALERT AND ORIENTED X 4.
[2020-05-19 01:22] LABS: BASOPHILS ABSOLUTE AUTO 0.01 K/mm3 (0.00-0.23); BASOPHILS PERCENT AUTO 0 % (0-2); EOSINOPHILS PERCENT AUTO 0 % (0-6); Hematocrit 26.5 % (33.0-51.0); Hemoglobin 8.6 g/dL (11.5-16.0); IMMATURE GRAN ABSOLUTE AUTO 0.06 K/mm3 (0.00-0.10); IMMATURE GRAN PERCENT AUTO 0 % (0-1); LYMPHOCYTES ABSOLUTE AUTO 0.29 K/mm3 (0.84-5.20); LYMPHOCYTES PERCENT AUTO 2 % (21-46); MONOCYTES ABSOLUTE AUTO 0.87 K/mm3 (0.16-1.47); MONOCYTES PERCENT AUTO 7 % (4-13); Mean Corpuscular HGB 29.7 pg (26.0-34.0); Mean Corpuscular HGB Conc 32.5 g/dL (31.5-36.5); Mean Corpuscular Volume 91 fL (80-100); Mean Platelet Volume 9.9 fL (9.1-12.4); NEUTROPHILS ABSOLUTE AUTO 12.23 K/mm3 (1.96-9.15); NEUTROPHILS PERCENT AUTO 91 % (41-73); Platelet Count 181 K/mm3 (150-400); RDW Standard Deviation 63.5 fL (35.1-46.3); White Blood Cell Count 13.46 K/mm3 (4.00-11.30)
[2020-05-19 01:42] LABS: Magnesium, Blood 2.1 mg/dL (1.6-2.4)
[2020-05-19 01:47] LABS: Albumin, Blood 2.2 g/dL (3.4-5.0); Albumin/Globulin Ratio 0.5 (0.8-1.8); Bilirubin, Total 0.4 mg/dL (0.1-1.0); Creatinine, Blood 2.25 mg/dL (0.40-1.00); Globulin, Blood 4.7 g/dL (2.2-4.0); Potassium, Blood 3.2 mmol/L (3.5-5.5); Total Protein, Blood 6.9 g/dL (6.4-8.2)
[2020-05-19 02:25] LABS: PCO2 Arterial 36.2 mmHg (35-45); PO2 Arterial 167 mmHg (80-100); pH Blood Arterial 7.38 (7.35-7.45)
--- NOTE | 2020-05-19 03:12 | NUR ---
ASSUMED CARE NOTE: ASSUMED CARE OF PT 0229, RECEVIED REPORT FROM MELECIO GLASER. PT ARRIVED TO UNIT POST MANAGER FURNITURE. SEE MANAGER FURNITURE CHARTING IN CHART. PT RESPONDS TO PAINFUL AND VERBAL STIMULI. UNABLE TO OPEN EYES DUE TO BILAT ORBITAL EDEMA. PT IS ABLE TO ANSWER YES/NO QUESTIONS, ABLE TO FOLLOW COMMANDS. CBG WAS CHECKED 144 USING BEDSIDE GLUCOMETER. PT IS ON 2L OF O2 VIA NC, WITH SPO2 ABOVE 95% PT IS IN NSR WITH HR IN THE 70'S. PT ABDOMEN IS MILDY DISTENDED, NON-TENDER TO PALPATION. PT IS INCONTINENT OF URINE. LINENS CHANGED, [facility] DELIVERED, ATTENDS PLACE, SKIN AROUND BUTTOCKS IS RED, HOWEVER BLANCHABLE. PATTIE-HOSE PRESENT. BP STABLE. NURSE ERIN, ACCESSED POWER-PORT MEDIPORT USING 20G, 3/4 INCH NEEDLE, NON-POWER PORT TUBING. D10 INFUSING VIA PORT AT 100ML/HR. WILL BE CHECKING CBG EVERY HOUR UNTIL STABLE. SEE ORDERS.
--- NOTE | 2020-05-19 05:37 | NUR ---
SHIFT SUMMARY: SEE PREVIOUS NOTES. PT CONTINUES TO RESPOND TO VERBAL ABD PAINFUL STIMULI. PT REMAINS OF 2L OF 02 VIA NC, WITH SPO2 ABOVE 95% PT HAS BEEN IN SR WITH HR IN THE 60'S. PT HAS BEEN RECEVING D10 AT 100ML/HR WITH Q1HR CBG CHECKS. THE LAST THREE HAVING BEEN OVER 150. CALLED TO SEE IF HE WANTED TO DROP THE RATE OF D10 SINCE BLOOD SUGARS HAVE BEEN GOING UP. LAST CBG WAS 180. AWATING FOR CALL BACK. PT HAS BEEN INCONTIENT, ATTENDS ON. WILL CONTINUE TO MONITOR PT UNTIL REPORT IS GIVEN TO ONCOMING SHIFT.
--- NOTE | 2020-05-19 06:10 | NUR ---
ORDERS TO DROP D10 TO 75ML/HR GIVEN. BLOOD SUGARS TO BE CHECKED Q3HR. ATTENDS ARE DRY.
--- NOTE | 2020-05-19 07:32 | NUR ---
ASSUMED CARE RECEIVED REPORT AND ASSUMED CARE OF PATIENT. VITALS STABLE, NO S/S OF DISTRESS. CBG CHARTED. WILL MONITOR.
--- NOTE | 2020-05-19 08:35 | NUR ---
ECHO ECHO TAKING PLACE AT BEDSIDE.
--- NOTE | 2020-05-19 12:50 | NUR ---
NAUSEA PATIENT WITH EPISODE OF EMESIS AFTER COMPLETING LUNCH TRAY. WITHIN A FEW MINUTES PATIENT STATED NAUSEA WAS SUBSIDING. VITALS STABLE, DENIED OTHER DISCOMFORTS.
--- NOTE | 2020-05-19 16:14 | NUR ---
RE-ASSESSMENT NO ACUTE CHANGES FROM PREVIOUS ASSESSMENT. POTASSIUM AND IV FLUIDS INFUSING ORDERED. VITAL SIGNS STABLE. DENIES DISCOMFORTS OR NEEDS. CALL LIGHT IN REACH.
--- NOTE | 2020-05-19 16:57 | NUR ---
Echocardiogram p[erformed by Mirela Lewis under my supervision.
[2020-05-19 17:46] LABS: Bun/Creatinine Ratio 27.4 (12.0-20.0); Creatinine, Blood 2.37 mg/dL (0.40-1.00); Potassium, Blood 4.5 mmol/L (3.5-5.5)
--- NOTE | 2020-05-19 18:27 | NUR ---
SHIFT SUMMARY PATIENT WITH LOW GLUCOSE, NONE SYMPTOMATIC. EATING DINNER AND DENYING NAUSEA. IVF AND ANTIBIOTICS INFUSING ORDERED. VITALS STABLE. WILL MONTITOR AND GIVE REPORT TO ONCOMING RN.
--- NOTE | 2020-05-19 18:53 | NUR ---
BLOOD SUGAR REPORTED PATIENT'S BLOOD SUGAR TO DR ISTRATE. RECEIVED NEW ORDERS, WILL TREAT PRESCRIBED.
--- NOTE | 2020-05-19 20:00 | NUR ---
ASSUMED CARE: A&O. AWAKE IN BED. VOICE IS HOARSE AND SHE SPEAKS IN A WHISPER. GENERALIZED WEAKNESS. SATTING WELL ON RA. IN SR. VSS. INCONTINENT ALTHOUGH ATTEMPTS TO USE BED LEYVA. MEDIPORT ACCESSED AND HAS D10 INFUSING AT 75MLS/HR. PT ALSO HAS 2 PIV ON RARM. BLOOD SUGARS HAVE BEEN LOW. ORDERS CHANGED TO Q2 BLOOD SUGAR CHECKS.. SKIN IN C/D/I. WILL CONTINUE TO MONITOR
[2020-05-20 04:22] LABS: BASOPHILS ABSOLUTE AUTO 0.01 K/mm3 (0.00-0.23); BASOPHILS PERCENT AUTO 0 % (0-2); EOSINOPHILS ABSOLUTE AUTO 0.02 K/mm3 (0.00-0.68); EOSINOPHILS PERCENT AUTO 0 % (0-6); Hematocrit 24.2 % (33.0-51.0); Hemoglobin 7.7 g/dL (11.5-16.0); IMMATURE GRAN ABSOLUTE AUTO 0.05 K/mm3 (0.00-0.10); IMMATURE GRAN PERCENT AUTO 1 % (0-1); LYMPHOCYTES ABSOLUTE AUTO 0.49 K/mm3 (0.84-5.20); LYMPHOCYTES PERCENT AUTO 6 % (21-46); MONOCYTES ABSOLUTE AUTO 0.74 K/mm3 (0.16-1.47); MONOCYTES PERCENT AUTO 8 % (4-13); Mean Corpuscular HGB 29.6 pg (26.0-34.0); Mean Corpuscular HGB Conc 31.8 g/dL (31.5-36.5); Mean Corpuscular Volume 93 fL (80-100); Mean Platelet Volume 10.9 fL (9.1-12.4); NEUTROPHILS ABSOLUTE AUTO 7.65 K/mm3 (1.96-9.15); NEUTROPHILS PERCENT AUTO 85 % (41-73); Platelet Count 128 K/mm3 (150-400); RDW Coefficient Variation 19.1 % (11.7-14.2); RDW Standard Deviation 65.1 fL (35.1-46.3); White Blood Cell Count 8.96 K/mm3 (4.00-11.30)
[2020-05-20 04:42] LABS: Albumin, Blood 1.8 g/dL (3.4-5.0); Albumin/Globulin Ratio 0.4 (0.8-1.8); Bilirubin, Total 0.3 mg/dL (0.1-1.0); Bun/Creatinine Ratio 24.6 (12.0-20.0); Calcium, Blood 7.7 mg/dL (8.5-10.1); Creatinine, Blood 2.4 mg/dL (0.40-1.00); Globulin, Blood 4.1 g/dL (2.2-4.0); Potassium, Blood 3.8 mmol/L (3.5-5.5); Total Protein, Blood 5.9 g/dL (6.4-8.2)
--- NOTE | 2020-05-20 05:19 | NUR ---
SHIFT SUMMARY: PT SLEPT A GOOD PORTION OF THE SHIFT. BLOOD SUGARS CURRENTLY IN THE 80S AFTER 3.5 AMPS OF D50. ANOTHER FULL AMP GIVEN. WILL RECHECK SUGARS AT 0600. D10 INFUSING AT 150MLS/HR. PT TOLERATING WELL. REQUIRED SOME SUPPLEMENTAL O2 WHILE SLEEPING DUE TO FREQUENT SHORT DROPS IN SPO2. BUT OTHERWISE SATS REMAINED WELL ABOVE 90%. WILL PASS REPORT TO ONCOMING SHIFT
--- NOTE | 2020-05-20 07:30 | NUR ---
ASSUMPTION OF CARE RECEIVED REPORT FROM NOC RN. ASSUMED CARE OF PATIENT. PT RESTING, VSS, IV FLUIDS INFUSING ORDERED. WILL MONITOR AND TREAT PRESCRIBED.
--- NOTE | 2020-05-20 12:00 | NUR ---
RE-ASSESSMENT NO ACUTE CHANGES FROM PREVIOUS ASSESSMENT. BLOOD SUGARS RESULTED CHARTED. REPORTED PATIENT'S STATUS AND BLOOD SUGARS TO DR. KEEN AT BEDSIDE AT 1130, PATIENT TRANSPORTED TO CT VIA BED AND 2 PERSON ASSIST. TOLERATED WELL. DENIES NAUSEA WITH LUNCH. WILL CONTINUE TO MONITOR, CALL LIGHT IN REACH.
--- NOTE | 2020-05-20 12:29 | NUR ---
Pt states her surrogate decision maker would be Deedee torres ph# [phone].Pt also lists her friend/roommate Sophie Graf as a surrogate decision maker, . Initial [facility] Care visit made after case conferencing with pt's RN re: current status and work-up being done after pt was referred to the ER by her oncologist, Dr Thomas, yesterday. Pt is 70 years old but appears much older. Her eyes are both swollen shut from a previous periorbital cellulitis. She appears asleep because she cannot open her eyes well but when asked questions answers appropriately and seems oriented to person, place, time and situation. Pt appears very pale and frail, chronically ill. She is weak and not moving in bed. She reported mild to moderate pain, some anxiety and feeling down about her health status. She states medications are managing her s/s. She asked me if she was going to . I told her I had no indication from anyone that she was imminently dying. I explained her drs were doing testing and would review results of testing when available. We reviewed some of her long standing severe and chronic illnesses including her breast cancer, DM, COPD, asthma, smoking hx. She was in the oncologists office yesterday for ongoing treatment of her breast cancer. I reviewed her code status with her and she confirms at this time that she would like to have CPR and be intubated if required to attempt to sustain life. We reviewed that CPR would not be effective in reversing any of her current illnesses or improving them if her heart were to stop. Pt verbalized understanding. She does not have an AD on file or designated surrogate decision maker documented. We talked about this and she states her daughter, who just returned from out of country and is living in [place], would be her surrogate medical decision maker, along with her friend, Sophie. Once pt has some results from testing back and drs have reviewed with her, I will call her daughter to update if she would like me to. I reviewed my visit with pt's RN, Alejandra, afterwards. Pt would benefit from a audiovisual equipment operator visit. She is a member of [employer] locally. Will put a referral in for Packing Room Worker.
[2020-05-20 14:35] LABS: BASOPHILS ABSOLUTE AUTO 0.01 K/mm3 (0.00-0.23); BASOPHILS PERCENT AUTO 0 % (0-2); EOSINOPHILS ABSOLUTE AUTO 0.03 K/mm3 (0.00-0.68); EOSINOPHILS PERCENT AUTO 0 % (0-6); Hematocrit 25.8 % (33.0-51.0); Hemoglobin 8.3 g/dL (11.5-16.0); IMMATURE GRAN ABSOLUTE AUTO 0.06 K/mm3 (0.00-0.10); IMMATURE GRAN PERCENT AUTO 1 % (0-1); LYMPHOCYTES ABSOLUTE AUTO 0.45 K/mm3 (0.84-5.20); LYMPHOCYTES PERCENT AUTO 4 % (21-46); MONOCYTES ABSOLUTE AUTO 0.73 K/mm3 (0.16-1.47); MONOCYTES PERCENT AUTO 7 % (4-13); Mean Corpuscular HGB 30.3 pg (26.0-34.0); Mean Corpuscular HGB Conc 32.2 g/dL (31.5-36.5); Mean Corpuscular Volume 94 fL (80-100); Mean Platelet Volume 10.8 fL (9.1-12.4); NEUTROPHILS ABSOLUTE AUTO 9.65 K/mm3 (1.96-9.15); NEUTROPHILS PERCENT AUTO 88 % (41-73); Platelet Count 121 K/mm3 (150-400); RDW Coefficient Variation 18.9 % (11.7-14.2); RDW Standard Deviation 65.5 fL (35.1-46.3); Red Blood Cell Count 2.74 M/mm3 (3.80-5.20); White Blood Cell Count 10.93 K/mm3 (4.00-11.30)
--- NOTE | 2020-05-20 16:00 | NUR ---
RE-ASSESSMENT NO ACUTE CHANGES FROM PREVIOUS ASSESSMENT. PATIENT DENIES DISCOMFORTS. VITALS STABLE. BLOOD SUGARS TREATED CHARTED.
[2020-05-20 16:39] LABS: Free Thyroxine 0.89 ng/dL (0.70-1.60)
[2020-05-20 16:49] LABS: Thyroid Stimulating Hormone 1.61 uIU/mL (0.360-4.800); Thyroxine (T4) 4.8 ug/dL (4.8-13.9); Triiodothyronine, Free 0.87 pg/mL (2.18-3.98)
--- NOTE | 2020-05-20 18:30 | NUR ---
SHIFT SUMMARY NO ACUTE CHANGES FROM PREVIOUS ASSESSMENT. PT CONTINUES TO DENY NAUSEA OR OTHER DISCOMFORTS. EYE DROPS ORDERED PER HOME MEDICATION, LABS ORDERED AND REVIEWED BY DR. KEEN. CBGS RESULTED CHARTED AND TREATED WITH DEXTROSE NEEDED. VITALS STABLE, REMAINS ON ROOM AIR. WILL CONTINUE TO MONITOR AND GIVE REPORT TO ONCOMING RN.
--- NOTE | 2020-05-20 19:32 | NUR ---
ASSUMED CARE: A&O. AWAKE IN BED. EYES ARE STILL SWOLLEN, HOWEVER THEY APPEAR LESS RED. ASKING FOR BEDPAN. HOWEVER IS INCONTINENT. BED LEYVA GIVEN. PT IS ABLE TO ASSIST WITH TURNS. IN SR. LUNG SOUNDS COARSE. PT VOICE COARSE AND SHE SPEAKS IN A WHISPER. MEDIPORT STILL ACCESSED AND HAS D10 AT 150MLS/HR. MULTIPLE AMPS OF D50 GIVEN THROUGHOUT DAYSHIFT WITH CHEM BGS 50-90S. WILL CONTINUE TO MONITOR
--- NOTE | 2020-05-21 02:45 | NUR ---
PT SLEEPING MAJORITY OF NIGHT. BLOOD SUGARS STABLE IN THE 70-80S. NO D50 GIVEN THUS FAR. VSS. WILL CONTINUE TO MONITOR
--- NOTE | 2020-05-21 06:14 | NUR ---
NO ACUTE CHANGES T/O SHIFT. VSS. CHEM BG 110S AT 0600 CHECK. PT STILL ON 4LNC. SPO2 >95%. PT ASSISTS WITH TURNS AND FOR THE MOST PART NEEDS VERBAL DIRECTION AND SOME MILD PHYSICAL ASSISTANCE. CORTISOL TEST TO BE DONE AROUND 8AM. WILL PASS REPORT TO ONCOMING SHIFT
--- NOTE | 2020-05-21 06:39 | NUR ---
PT HAD A BANDAGE TO L THUMB THAT WAS REMOVED. SMALL LAC. RED, SOME PURULENT D/C. AREA CLEANED AND REBANDAGED. PIC IN CHART
--- NOTE | 2020-05-21 07:18 | NUR ---
ASSUMPTION OF CARE RECEIVED REPORT FROM RADHA GLASER. ASSUMED CARE OF PATIENT. PATIENT RESTING WITH NO S/S OF DISTRESS. VITALS STABLE. CALL LIGHT IN REACH.
[2020-05-21 07:38] LABS: BASOPHILS ABSOLUTE AUTO 0.02 K/mm3 (0.00-0.23); BASOPHILS PERCENT AUTO 0 % (0-2); EOSINOPHILS ABSOLUTE AUTO 0.11 K/mm3 (0.00-0.68); EOSINOPHILS PERCENT AUTO 1 % (0-6); Hematocrit 26.3 % (33.0-51.0); Hemoglobin 8.3 g/dL (11.5-16.0); IMMATURE GRAN ABSOLUTE AUTO 0.11 K/mm3 (0.00-0.10); IMMATURE GRAN PERCENT AUTO 1 % (0-1); LYMPHOCYTES ABSOLUTE AUTO 0.47 K/mm3 (0.84-5.20); LYMPHOCYTES PERCENT AUTO 4 % (21-46); MONOCYTES ABSOLUTE AUTO 0.76 K/mm3 (0.16-1.47); MONOCYTES PERCENT AUTO 6 % (4-13); Mean Corpuscular HGB 29.7 pg (26.0-34.0); Mean Corpuscular HGB Conc 31.6 g/dL (31.5-36.5); Mean Corpuscular Volume 94 fL (80-100); Mean Platelet Volume 10.4 fL (9.1-12.4); NEUTROPHILS ABSOLUTE AUTO 11.22 K/mm3 (1.96-9.15); NEUTROPHILS PERCENT AUTO 88 % (41-73); Platelet Count 108 K/mm3 (150-400); RDW Coefficient Variation 18.6 % (11.7-14.2); Red Blood Cell Count 2.79 M/mm3 (3.80-5.20); White Blood Cell Count 12.69 K/mm3 (4.00-11.30)
[2020-05-21 07:55] LABS: Albumin, Blood 1.6 g/dL (3.4-5.0); Albumin/Globulin Ratio 0.4 (0.8-1.8); Bilirubin, Total 0.3 mg/dL (0.1-1.0); Bun/Creatinine Ratio 24.9 (12.0-20.0); Creatinine, Blood 2.01 mg/dL (0.40-1.00); Globulin, Blood 4.1 g/dL (2.2-4.0); Potassium, Blood 3.3 mmol/L (3.5-5.5); Total Protein, Blood 5.7 g/dL (6.4-8.2)
--- NOTE | 2020-05-21 10:29 | NUR ---
Case conferenced with pt's RN on current status and plan of care. Andrea is calling in for updates. Pt to f/u with Dr Thomas as an OP when she is medically stable for d/c home. I attempted to visit pt but she was sound asleep and did not wake to voice or touch this am. She appears comfortable wtih no nonverbal indicators of pain or distress noted while she was sleeping.
--- NOTE | 2020-05-21 12:00 | NUR ---
RE-ASSESSMENT PATIENT WITH NO ACUTE CHANGES. STATUS CHANGED TO MEDICAL. VITALS REMAIN STABLE. PHYSICAL THERAPY TO BEDSIDE FOR EVALUATION.
--- NOTE | 2020-05-21 14:31 | NUR ---
TRANSFER REPORT GIVEN TO MEDICAL FLOOR. PATIENT TO TRANSFER TO UNIT.
--- NOTE | 2020-05-21 15:34 | NUR ---
SHIFT SUMMARY PT TRANSFERRED FROM ICU 13 TO [facility] 327. RECEIVED REPORT FROM VIKKI GLASER. NS @100ML/HR VIA MEDIPORT. PT AOX4, ON O2 2L VIA NC. PT USES CPAP AT NIGHT. BG Q4. SCATTERED BRUISING ON SKIN. PT HAS ORBITAL CELLULITIS- AND USES DECADRON FOR IT. BP ONLY ON THE R ARM. PT HAS A DAUGHTER THAT LIVES IN [place] AND HER NAME IS CHRISTINE THAT WILL CALL COUPLE TIMES A DAY FOR AN UPDATE. THE PT LIVES WITH SHAMIR HER FRIEND. BED IS IN THE LOWEST POSITION AND CALL LIGHTS IN REACH.
--- NOTE | 2020-05-22 05:59 | NUR ---
TRENCH DIGGER HELPER SUMMARY Kisha had no complaints of pain or discomfort overnight. Steroid drops administered in both eyes and patient stated they never bothered her. Able to swallow her meds whole with water. Still hoarse and extremely quiet. Right chest port running well with good blood return. Kisha wore CPAP without difficulty most of the night with 02 SAT staying in mid to high 90's. 1 episode of small loose watery stool on bedpan middle of night.
[2020-05-22 08:48] LABS: BASOPHILS ABSOLUTE AUTO 0.01 K/mm3 (0.00-0.23); BASOPHILS PERCENT AUTO 0 % (0-2); EOSINOPHILS ABSOLUTE AUTO 0.01 K/mm3 (0.00-0.68); EOSINOPHILS PERCENT AUTO 0 % (0-6); Hematocrit 28.2 % (33.0-51.0); Hemoglobin 9.1 g/dL (11.5-16.0); IMMATURE GRAN ABSOLUTE AUTO 0.05 K/mm3 (0.00-0.10); IMMATURE GRAN PERCENT AUTO 1 % (0-1); LYMPHOCYTES ABSOLUTE AUTO 0.37 K/mm3 (0.84-5.20); LYMPHOCYTES PERCENT AUTO 3 % (21-46); MONOCYTES ABSOLUTE AUTO 0.52 K/mm3 (0.16-1.47); MONOCYTES PERCENT AUTO 5 % (4-13); Mean Corpuscular HGB 30.2 pg (26.0-34.0); Mean Corpuscular HGB Conc 32.3 g/dL (31.5-36.5); Mean Corpuscular Volume 94 fL (80-100); Mean Platelet Volume 11.6 fL (9.1-12.4); NEUTROPHILS ABSOLUTE AUTO 10.07 K/mm3 (1.96-9.15); NEUTROPHILS PERCENT AUTO 91 % (41-73); Platelet Count 86 K/mm3 (150-400); RDW Coefficient Variation 18.5 % (11.7-14.2); RDW Standard Deviation 64.1 fL (35.1-46.3); Red Blood Cell Count 3.01 M/mm3 (3.80-5.20); White Blood Cell Count 11.03 K/mm3 (4.00-11.30)
[2020-05-22 09:12] LABS: Albumin, Blood 1.9 g/dL (3.4-5.0); Albumin/Globulin Ratio 0.5 (0.8-1.8); Bilirubin, Total 0.3 mg/dL (0.1-1.0); Bun/Creatinine Ratio 28.6 (12.0-20.0); Calcium, Blood 7.9 mg/dL (8.5-10.1); Creatinine, Blood 1.61 mg/dL (0.40-1.00); Globulin, Blood 4.1 g/dL (2.2-4.0); Potassium, Blood 3.7 mmol/L (3.5-5.5)
--- NOTE | 2020-05-22 14:18 | NUR ---
Pt.is in bed resting encouraged pt. and offered prayers
--- NOTE | 2020-05-22 18:23 | NUR ---
A&OX4, 1 ASSIST PIVOT TRANSFER TO CHAIR. TOWARDS THE EVENING PT BECAME WEAKER AND NEEDED 2 PERSON ASSIST TRANSFER TO COMODE AND SOME INCONTINENCE. PT DENIES PAIN. PT IS ON A SLIDING SCALE OF INSULIN. NO OTHER CHANGES OR CONCERNS AT THIS TIME.
--- NOTE | 2020-05-22 23:20 | NUR ---
PT WITH NEW SUDDEN ONSET CONFUSION. DISORINETED TO PLACE. ORIENTED TO SELF ONLY. LEFT FAICAL DROOP NOTED. PT UNABLE TO OPEN LEFT EYE. MILD WEAKNESS TO LEFT SIDE. PT DENIES N/T. DR. PATEL NOTIFIED OF S/SX. NEW ORDER FOR STAT HEAD CT W/O CONTRAST.
--- NOTE | 2020-05-22 23:50 | NUR ---
SYMPTOMS RESOLIVING AT THIS TIME. PT A&O X4. SPEECH CLEAR WITHOUT NOTABLE FACIAL DROOP TO LEFT SIDE. PT ABLE TO LIFT BOTH ARMS AND LEGS. CONTINUES TO DENY N/T.
--- NOTE | 2020-05-23 00:15 | NUR ---
DR. PATEL IN ROOM TO ASSESS PATIENT.
--- NOTE | 2020-05-23 04:30 | NUR ---
SHIFT SUMMARY: PT INTERMITTENTLY CONFUSED THIS SHIFT. DISORIENTED TO PLACE, OFTEN THINKING SHE IS AT HOME AND ASKING IF SHE CAN GO INTO THE FAMILY ROOM WHILE POINTING ACROSS THE ROOM. ALSO ASKING IF SHE CAN GO TO THE [facility] DOWNSTAIRS. HEAD CT W/O CONTRAST COMPLETE AND AWAITING RESULTS. LUNGS DIMINISHED THROUGHOUT. O2 >93% ON 1.5LO2 VIA NC. OCCASIONAL WET, NON PRODUCTIVE COUGH. 2 ASSIST TO BEDSIDE COMMODE, OTHERWISE VOIDING IN ATTENDS. MEDIPORT TO RIGHT CHEST WALL INFUSING SALINE AT 100/HR PER ORDERS. ORBITAL EDEMA WITHOUT IMPROVEMENT OVER NIGHT. PT UNABLE TO OPEN LEFT EYE AT TIMES.
[2020-05-23 05:27] LABS: BASOPHILS ABSOLUTE AUTO 0.01 K/mm3 (0.00-0.23); BASOPHILS PERCENT AUTO 0 % (0-2); EOSINOPHILS ABSOLUTE AUTO 0.06 K/mm3 (0.00-0.68); EOSINOPHILS PERCENT AUTO 1 % (0-6); Hematocrit 24.6 % (33.0-51.0); Hemoglobin 7.7 g/dL (11.5-16.0); IMMATURE GRAN ABSOLUTE AUTO 0.04 K/mm3 (0.00-0.10); IMMATURE GRAN PERCENT AUTO 1 % (0-1); LYMPHOCYTES ABSOLUTE AUTO 0.39 K/mm3 (0.84-5.20); LYMPHOCYTES PERCENT AUTO 4 % (21-46); MONOCYTES ABSOLUTE AUTO 0.65 K/mm3 (0.16-1.47); MONOCYTES PERCENT AUTO 7 % (4-13); Mean Corpuscular HGB Conc 31.3 g/dL (31.5-36.5); Mean Corpuscular Volume 96 fL (80-100); NEUTROPHILS ABSOLUTE AUTO 7.62 K/mm3 (1.96-9.15); NEUTROPHILS PERCENT AUTO 87 % (41-73); Platelet Count 82 K/mm3 (150-400); RDW Standard Deviation 67.2 fL (35.1-46.3); Red Blood Cell Count 2.57 M/mm3 (3.80-5.20); White Blood Cell Count 8.77 K/mm3 (4.00-11.30)
[2020-05-23 06:10] LABS: Albumin, Blood 1.7 g/dL (3.4-5.0); Albumin/Globulin Ratio 0.4 (0.8-1.8); Bilirubin, Total 0.5 mg/dL (0.1-1.0); Bun/Creatinine Ratio 28.3 (12.0-20.0); Creatinine, Blood 1.38 mg/dL (0.40-1.00); Globulin, Blood 3.9 g/dL (2.2-4.0); Potassium, Blood 3.9 mmol/L (3.5-5.5); Total Protein, Blood 5.6 g/dL (6.4-8.2)
--- NOTE | 2020-05-23 10:34 | NUR ---
PT DOES NOT MRI ABD IN HOSPITAL, SHE WAS MADE AWARE THAT OUTPATIENT MRI IS 4-6 WEEKS OUT AND STILL REQUESTS THAT IT BE COMPLETED AN OUTPATIENT. JAILYN KING FOR DR. OATES NOTIFIED, ORDER CANCELLED.
--- NOTE | 2020-05-23 15:14 | NUR ---
Pt. is sittingn in a chair and her nurse in the room attending nrto her needs pt reports doing well prayed for her.
--- NOTE | 2020-05-23 18:10 | NUR ---
PT A&OX4, PT GETS TIRED HAS SOME DISORIENTATION. OCCUPATIONAL THERAPY PERFORMED COGNITIVE ASSESSMENT, MODERATE-SEVERE COGNITIVE IMPAIRMENT. PHYSICAL THERAPY REQUIRES FULL-TIME SUPERVISION. PT IS INCONTINENT, 1-2 PERSON ASSIST TO CAMODE. PT DENIES PAIN, PT HAD TEMP OF 99.5, ADMINISTERED TYELONOL, TEMP WENT TO 99.2. COVID TEST PERFORMED THIS EVENING, SENT TO LAB, FOR TENATIVE DISCHARGE TO SNF. NO OTHER CHANGES OR CONCERNS.
--- NOTE | 2020-05-23 19:15 | NUR ---
ASSUMED CARE RECEIVED REPORT FROM JAILYN RUCKER. ASSUMED CARE OF PT. PULSE OX ALARMING. PT CRYING OUT FOR HELP. THIS RN IN ROOM FIXING PULSE OX. PT O2 SATS STABILIZING. ADJUSTED POSITION IN RECLINER. APPEARS COMFORTABLE. DENIES NEEDS. CALL LIGHT, POSSESSIONS IN REACH. CHAIR ALARM ON. WILL CONTINUE TO MONITOR.
[2020-05-24 05:07] LABS: BASOPHILS ABSOLUTE AUTO 0.01 K/mm3 (0.00-0.23); BASOPHILS PERCENT AUTO 0 % (0-2); EOSINOPHILS ABSOLUTE AUTO 0.08 K/mm3 (0.00-0.68); EOSINOPHILS PERCENT AUTO 1 % (0-6); Hematocrit 24.6 % (33.0-51.0); IMMATURE GRAN ABSOLUTE AUTO 0.06 K/mm3 (0.00-0.10); IMMATURE GRAN PERCENT AUTO 1 % (0-1); LYMPHOCYTES PERCENT AUTO 6 % (21-46); MONOCYTES ABSOLUTE AUTO 0.87 K/mm3 (0.16-1.47); MONOCYTES PERCENT AUTO 11 % (4-13); Mean Corpuscular HGB 30.4 pg (26.0-34.0); Mean Corpuscular HGB Conc 32.5 g/dL (31.5-36.5); Mean Corpuscular Volume 94 fL (80-100); NEUTROPHILS ABSOLUTE AUTO 6.43 K/mm3 (1.96-9.15); NEUTROPHILS PERCENT AUTO 81 % (41-73); Platelet Count 77 K/mm3 (150-400); RDW Coefficient Variation 18.7 % (11.7-14.2); RDW Standard Deviation 65.1 fL (35.1-46.3); Red Blood Cell Count 2.63 M/mm3 (3.80-5.20); White Blood Cell Count 7.95 K/mm3 (4.00-11.30)
[2020-05-24 05:32] LABS: Albumin, Blood 1.7 g/dL (3.4-5.0); Albumin/Globulin Ratio 0.4 (0.8-1.8); Bilirubin, Total 0.5 mg/dL (0.1-1.0); Bun/Creatinine Ratio 24.8 (12.0-20.0); Calcium, Blood 8.1 mg/dL (8.5-10.1); Creatinine, Blood 1.25 mg/dL (0.40-1.00); Potassium, Blood 3.6 mmol/L (3.5-5.5); Total Protein, Blood 5.7 g/dL (6.4-8.2)
--- NOTE | 2020-05-24 07:43 | NUR ---
SHIFT SUMMARY PT SLEPT IN RECLINER ALL T/O NIGHT. WAS MONITORED EVERY 1-2 HOURS WITH NEEDS MET. DENIES NEEDS AT THIS TIME. RETURNED TO BED AT 0530 THIS AM WITH ASSIST OF 3, D/T UNSTEADY GAIT. PT TOLERATED FAIRLY WELL. PT ASLEEP AT THIS TIME, DENIES NEEDS. VS REVIEWED, 02 SATS STABLE; WORE CPAP T/O NIGHT. CALL LIGHT AND POSSESSIONS IN REACH, BED IN LOW POSITION WITH ALARMS ON. REPORT GIVEN TO JAILYN MAYS.
[2020-05-24] MEDS ORDERED: FURO20 PO (10:36)
[2020-05-24] MEDS ORDERED: POTA10T PO (10:37)
[2020-05-24] MEDS ORDERED: TRAZ50 PO (10:38)
[2020-05-24] MEDS ORDERED: ACET325 PO (10:38)
[2020-05-24] MEDS ORDERED: CEPH500 PO (10:40)
[2020-05-24] MEDS ORDERED: FAMO20 PO (10:40)
[2020-05-24] MEDS ORDERED: NICO21TP TOP (10:41)
[2020-05-24] MEDS ORDERED: NYSTOP15 GM TOP (10:41)
[2020-05-24] MEDS ORDERED: ONDA4ODT MM (10:42)
[2020-05-24] MEDS ORDERED: XARELTO10 M1 PO (10:42)
[2020-05-24] MEDS ORDERED: SPIR25 PO (10:43)
[2020-05-24] MEDS ORDERED: VISBIOME PROBIOTIC PO (10:44)
--- NOTE | 2020-05-24 12:07 | NUR ---
Pt. is sitting in a chair and her nurse in the room attendingh to pt, and pt . reports doing fine ofered prayers and blessing
--- NOTE | 2020-05-24 18:29 | NUR ---
PT PLEASANT TODAY. A/O X3 VERY QUIET TALKER. LUNGS DIM. ON 2L O2 TODAY. DID OKAY WITH 1 HEAVY ASST TO 2 MOD ASST. NOT ABLE TO GO HOME TODAY ON OWN . LOOKING FOR PLACEMENT AT SNF. NO NEW CONCERHS AT THIS TIME. BED IN LOW [id number], CALL LITE IN REACH, CALLS APPROP
--- NOTE | 2020-05-25 04:28 | NUR ---
SHIFT SUMMARY- PT. A&O, PLEASANT, AND COOPERATIVE WITH CARE. NO C/O PAIN DURING THE NIGHT. INCONT, ATTENDS IN PLACE, ABLE TO USE BSC W/1-2 ASSIST AND WALKER. BS STABLE THIS SHIFT. PT. APPEARS TO BE SLEEPING COMFORTABLY, NO APPARENT DISTRESS NOTED. CALL LIGHT WITHIN REACH AND SIDE RAILS UPX2. WILL CONT TO MONITOR.
[2020-05-25 04:51] LABS: BASOPHILS ABSOLUTE AUTO 0.01 K/mm3 (0.00-0.23); BASOPHILS PERCENT AUTO 0 % (0-2); EOSINOPHILS ABSOLUTE AUTO 0.07 K/mm3 (0.00-0.68); EOSINOPHILS PERCENT AUTO 1 % (0-6); Hematocrit 23.5 % (33.0-51.0); Hemoglobin 7.3 g/dL (11.5-16.0); IMMATURE GRAN ABSOLUTE AUTO 0.08 K/mm3 (0.00-0.10); IMMATURE GRAN PERCENT AUTO 1 % (0-1); LYMPHOCYTES ABSOLUTE AUTO 0.46 K/mm3 (0.84-5.20); LYMPHOCYTES PERCENT AUTO 6 % (21-46); MONOCYTES ABSOLUTE AUTO 0.85 K/mm3 (0.16-1.47); MONOCYTES PERCENT AUTO 10 % (4-13); Mean Corpuscular HGB 29.9 pg (26.0-34.0); Mean Corpuscular HGB Conc 31.1 g/dL (31.5-36.5); Mean Corpuscular Volume 96 fL (80-100); Mean Platelet Volume 11.2 fL (9.1-12.4); NEUTROPHILS ABSOLUTE AUTO 6.96 K/mm3 (1.96-9.15); NEUTROPHILS PERCENT AUTO 83 % (41-73); Platelet Count 77 K/mm3 (150-400); RDW Coefficient Variation 19.2 % (11.7-14.2); RDW Standard Deviation 68.4 fL (35.1-46.3); Red Blood Cell Count 2.44 M/mm3 (3.80-5.20); White Blood Cell Count 8.43 K/mm3 (4.00-11.30)
[2020-05-25 05:28] LABS: Albumin, Blood 1.8 g/dL (3.4-5.0); Albumin/Globulin Ratio 0.5 (0.8-1.8); Bilirubin, Total 0.4 mg/dL (0.1-1.0); Bun/Creatinine Ratio 21.1 (12.0-20.0); Calcium, Blood 8.2 mg/dL (8.5-10.1); Creatinine, Blood 1.09 mg/dL (0.40-1.00); Globulin, Blood 3.8 g/dL (2.2-4.0); Potassium, Blood 3.7 mmol/L (3.5-5.5); Total Protein, Blood 5.6 g/dL (6.4-8.2)
--- NOTE | 2020-05-25 07:45 | NUR ---
Patient has continuous infusion of NS @ 100 mLs/hr and per RT report, LS has rales. Upon review of I/O, intake highly exceeds output. Dr. Howardtrate notified requesting BNP and cessation of continuous infusion. Received telephone order to stop NS and continue to monitor. No additional orders.
[2020-05-25] MEDS ORDERED: BISA10S PR (09:41)
[2020-05-25] MEDS ORDERED: HYDR1TAB94 PO (09:45)
--- NOTE | 2020-05-25 11:18 | NUR ---
BLOOD GLUCOSE CHECKS RECEIVED VERBAL ORDER FROM DR. KEEN TO CHANGE BLOOD SUGAR CHECK FREQUENCY TO AC/HS INSTEAD OF Q4H. ORDER UPDATED.
[2020-05-25] MEDS ORDERED: ANASTROZOLE 1 MG (12:10)
[2020-05-25] MEDS ORDERED: ATORVASTATIN CA40 M1 PO (16:13)
--- NOTE | 2020-05-25 17:05 | NUR ---
Discharge Summary A/Ox3, slightly unsure about situation. Up in room with 1p moderate assist c gait to bedside commode. Continent/Incontinent, brief in place. 1u PRBC transfused, lasix given per EMAR post transfusion, and labs drawn prior to discharging. Continues 2L O2 per baseline @ HS. L/S with crackles in bases. Medicated for [place] x 1 per EMAR with good relief. Mediport deaccessed prior to discharge. Report handed off to receiving JAILYN Lyon at [facility]. Transport picked up patient @ 1705. Packet with scripts given to full service vending driver. WAITANGI [employer]BER assisted full service vending driver with personal belongings, these were sent with patient to [facility].
[2020-05-25 17:25] LABS: Hematocrit 27.9 % (33.0-51.0); Hemoglobin 8.8 g/dL (11.5-16.0); Mean Corpuscular HGB 29.9 pg (26.0-34.0); Mean Corpuscular HGB Conc 31.5 g/dL (31.5-36.5); Mean Corpuscular Volume 95 fL (80-100); Mean Platelet Volume 11.2 fL (9.1-12.4); Platelet Count 81 K/mm3 (150-400); RDW Coefficient Variation 18.8 % (11.7-14.2); Red Blood Cell Count 2.94 M/mm3 (3.80-5.20); White Blood Cell Count 9.45 K/mm3 (4.00-11.30)
== END 2020-05-25 17:02 | DRG 682 ==
LOC: ER 12:39 → MEDS 19:44 → ICUW 05-19 02:20 → MEDS 05-19 02:21 → ICUW 05-19 02:26 → MEDS 05-19 12:27 → ICUW 05-19 12:28 → MEDS 05-21 14:38
PROVIDERS: Internal Medicine; Physician Assistant; ADMIT Family Medicine
PROC: 30233N1 Transfusion of Nonautologous Red Blood Cells into Peripheral Vein, Percutaneous Approach (ICD-10-PCS; principal; 2020-05-21)
DX: N17.9 Acute kidney failure, unspecified (principal); G92 Toxic encephalopathy; H05.013 Cellulitis of bilateral orbits; N39.0 Urinary tract infection, site not specified; E87.1 Hypo-osmolality and hyponatremia; J44.9 Chronic obstructive pulmonary disease, unspecified; F17.210 Nicotine dependence, cigarettes, uncomplicated; E66.9 Obesity, unspecified; Z68.31 Body mass index [BMI] 31.0-31.9, adult; Z90.12 Acquired absence of left breast and nipple; Z98.84 Bariatric surgery status; E11.22 Type 2 diabetes mellitus with diabetic chronic kidney disease; E11.649 Type 2 diabetes mellitus with hypoglycemia without coma; E87.6 Hypokalemia; N13.30 Unspecified hydronephrosis; I12.9 Hypertensive chronic kidney disease with stage 1 through stage 4 chronic kidney disease, or unspecified chronic kidney disease; C50.912 Malignant neoplasm of unspecified site of left female breast; E11.40 Type 2 diabetes mellitus with diabetic neuropathy, unspecified; E88.09 Other disorders of plasma-protein metabolism, not elsewhere classified; R53.1 Weakness; R77.8 Other specified abnormalities of plasma proteins; D63.0 Anemia in neoplastic disease
CPT/HCPCS: 36415; 36430; 36600; 70450; 70480; 76700; 80048; 80053; 80400; 81001; 82140; 82533; 82803; 82947; 83036; 83690; 83735; 84145; 84436; 84439; 84443; 84481; 84484; 84681; 85025; 85027; 86850; 86900; 86901; 86923; 87077; 87086; 87186; 93005; 93010; 93308; 93321; 94640; 94660; 94762; 96361; 96365; 96372; 96374; 96375; 96376; 97110; 97116; 97129; 97162; 97166; 97530; 97535; 99285-25; A9270; A9270-GY; G0378; J0696; J0834; J1642; J1650; J1940; J1956; J2405; J2543; J3480; J7030; J7050; P9016; P9046; U0004

== ENCOUNTER 2020-06-08 11:18 | Inpatient (IN) | payer OTHER ==
[~2020-06-08] VITALS: Ht 160 cm; Wt 87.6 kg
[~2020-06-08 11:18] MED LIST changes: +ACET325 PO; +ANASTROZOLE 1 MG; +ATORVASTATIN CA40 M1 PO; +BISA10S PR; +FAMO20 PO; +HYDR1TAB94 PO; +MAXIDEX5 ML BOTHEYES; +NICO21TP TOP; +NYSTOP15 GM TOP; +ONDA4ODT MM; +POTA10T PO; +SPIRONOLACTONE25 MG PO; +TRAZ50 PO; +VISBIOME PROBIOTIC PO; +XARELTO10 M1 PO
[2020-06-08 12:07] LABS: BASOPHILS ABSOLUTE AUTO 0.03 K/mm3 (0.00-0.23); BASOPHILS PERCENT AUTO 0 % (0-2); EOSINOPHILS ABSOLUTE AUTO 0.05 K/mm3 (0.00-0.68); EOSINOPHILS PERCENT AUTO 1 % (0-6); Hematocrit 30.1 % (33.0-51.0); Hemoglobin 9.4 g/dL (11.5-16.0); IMMATURE GRAN ABSOLUTE AUTO 0.05 K/mm3 (0.00-0.10); IMMATURE GRAN PERCENT AUTO 1 % (0-1); LYMPHOCYTES PERCENT AUTO 6 % (21-46); MONOCYTES ABSOLUTE AUTO 0.84 K/mm3 (0.16-1.47); MONOCYTES PERCENT AUTO 10 % (4-13); Mean Corpuscular HGB 31.3 pg (26.0-34.0); Mean Corpuscular HGB Conc 31.2 g/dL (31.5-36.5); Mean Corpuscular Volume 100 fL (80-100); Mean Platelet Volume 11.5 fL (9.1-12.4); NEUTROPHILS ABSOLUTE AUTO 7.13 K/mm3 (1.96-9.15); NEUTROPHILS PERCENT AUTO 83 % (41-73); Platelet Count 137 K/mm3 (150-400); RDW Standard Deviation 71.9 fL (35.1-46.3)
[2020-06-08 12:38] LABS: Albumin, Blood 2.2 g/dL (3.4-5.0); Albumin/Globulin Ratio 0.4 (0.8-1.8); Bilirubin, Total 0.6 mg/dL (0.1-1.0); Bun/Creatinine Ratio 16.7 (12.0-20.0); Calcium, Blood 8.5 mg/dL (8.5-10.1); Creatinine, Blood 1.68 mg/dL (0.40-1.00); Globulin, Blood 4.9 g/dL (2.2-4.0); Potassium, Blood 3.6 mmol/L (3.5-5.5); Total Protein, Blood 7.1 g/dL (6.4-8.2); Troponin I 0.276 ng/mL (0.000-0.040)
[2020-06-08 13:11] LABS: Magnesium, Blood 2.1 mg/dL (1.6-2.4); Phosphorus, Blood 4.7 mg/dL (2.5-4.9)
[2020-06-08 16:47] LABS: Bicarbonate Venous 20.9 mmol/L (24.0-30.0); PCO2 Venous 29.3 mmHg (38-42); PO2 Venous 163 mmHg (38-42); pH Blood Venous 7.43 (7.34-7.37)
--- NOTE | 2020-06-08 19:55 | NUR ---
BEATRIZ IS BEING ADMITTED TO MEDICAL FLOOR FOR ACUTE ON CHRONIC KIDNEY FAILURE. SHE WAS JUST RELEASED FROM [facility] ON FRIDAY AND WAS AT HOME WITH CAREGIVER. SHE HAS INCREASE IN SWELLING AND DECREASE IN MOBILITY. PATIENT ARRIVED TO THE FLOOR VIA GURNEY, TRANSFERRED WITH SLIDER SHEET. AOX3, BUT HAS PERIODS OF FORGETFULNESS. DENIES ANY PAIN OR DISCOMFORT. BILATERAL EYES ARE RED SWOLLEN AND UNABLE TO OPEN ALL THE WAY. STATES THEY HAVE BEEN THIS WAY FOR SEVERAL MONTHS NOW AND THEY DON'T KNOW WHAT IS GOING ON. THERE IS SOME YELLOW DRAINAGE ON THEM. SWELLING IS VERY FIRM. THIS HAS CAUSED DECREASE IN HER VISION FEILD. SHE NEEDS ASSISTANCE WITH EVERYTHING DUE TO THIS. LUNG SOUNDS ARE CLEAR. HR REGULAR. BLE EDEMA FROM TOES UP TO HIP AREA 3+ PITTING. HURTS TO TOUCH HER LEGS. PULSES WEAK AND HARD TO FEEL DUE TO EDEMA. BM YESTERDAY. LAI CATHETER DUE TO RETENTION. FOOD GIVEN, PEPSI GIVEN DUE TO LOW BS IN ER, ONLY ONCE. CALL LIGHT IN REACH. WILL CHECK ORDERS.
[2020-06-09 01:04] LABS: BASOPHILS ABSOLUTE AUTO 0.02 K/mm3 (0.00-0.23); BASOPHILS PERCENT AUTO 0 % (0-2); EOSINOPHILS ABSOLUTE AUTO 0.04 K/mm3 (0.00-0.68); EOSINOPHILS PERCENT AUTO 1 % (0-6); Hematocrit 26.3 % (33.0-51.0); Hemoglobin 8.2 g/dL (11.5-16.0); IMMATURE GRAN ABSOLUTE AUTO 0.03 K/mm3 (0.00-0.10); IMMATURE GRAN PERCENT AUTO 0 % (0-1); LYMPHOCYTES ABSOLUTE AUTO 0.62 K/mm3 (0.84-5.20); LYMPHOCYTES PERCENT AUTO 8 % (21-46); MONOCYTES ABSOLUTE AUTO 0.97 K/mm3 (0.16-1.47); MONOCYTES PERCENT AUTO 13 % (4-13); Mean Corpuscular HGB 31.2 pg (26.0-34.0); Mean Corpuscular HGB Conc 31.2 g/dL (31.5-36.5); Mean Corpuscular Volume 100 fL (80-100); Mean Platelet Volume 10.9 fL (9.1-12.4); NEUTROPHILS ABSOLUTE AUTO 5.95 K/mm3 (1.96-9.15); NEUTROPHILS PERCENT AUTO 78 % (41-73); Platelet Count 116 K/mm3 (150-400); RDW Coefficient Variation 20.1 % (11.7-14.2); RDW Standard Deviation 71.4 fL (35.1-46.3); Red Blood Cell Count 2.63 M/mm3 (3.80-5.20); White Blood Cell Count 7.63 K/mm3 (4.00-11.30)
[2020-06-09 01:22] LABS: Albumin/Globulin Ratio 0.4 (0.8-1.8); Bilirubin, Total 0.4 mg/dL (0.1-1.0); Bun/Creatinine Ratio 17.2 (12.0-20.0); Creatinine, Blood 1.69 mg/dL (0.40-1.00); Globulin, Blood 4.6 g/dL (2.2-4.0); Potassium, Blood 3.1 mmol/L (3.5-5.5); Total Protein, Blood 6.6 g/dL (6.4-8.2)
--- NOTE | 2020-06-09 06:25 | NUR ---
SHIFT SUMMARY: BEATRIZ IS AOX3, ADMITTED FOR ACUTE KIDNEY FAILURE. SHE HAS 3+ EDEMA FROM TOES TO HER HIPS PITTING. SHE HAD URINARY RETENTION, LAI PLACED IN ED. GROIN VERY RED ALL OVER, NEEDS TO HAVE NYSTATIN POWDER ORDERED. BILATERAL EYES ARE RED, SWOLLEN, FIRM, AND UNABLE TO OPEN COMPLETELY, THIS HAS DISRUPTED HER VISION. SHE GOT SOMETHING TO EAT, AND HER MEDS AND FELL ASLEEP, SLEEPING T/O THE NIGHT. VS WNL, AFEBRILE. NO PAIN NOTED. CALL LIGHT IN REACH.
[2020-06-09 09:55] LABS: Source, Urine Catheter
[2020-06-09 10:05] LABS: Appearance, Urine Hazy (Clear); Bilirubin, Urine Neg (Neg); Blood, Urine 4+ (Neg); Color, Urine Yellow (P-Yellow); Glucose Qualitative, Urine Neg (Neg); Ketones, Urine 1+ (Neg); Leukocyte Esterase, Urine 3+ (Neg); Nitrite, Urine Neg (Neg); Protein, Urine 2+ (Neg); Urobilinogen, Urine NORM (Normal)
[2020-06-09 10:46] LABS: White Blood Cells, Urine 25-50 /hpf (0-5)
[2020-06-09 10:47] LABS: Bacteria Mod /hpf; Squamous Epithelial Cells Rare /hpf (Few); Transitional Epithelial Cells Rare /hpf (0-Rare)
--- NOTE | 2020-06-09 17:34 | NUR ---
PATIENT ALERT AND ORIENTED. PLEASANT AND COOPERATIVE WITH STAFF. DENIES PAIN AND DISCOMFORT. IV FLUIDS RUNNING THROUGH MEDIPORT PER EMAR. VITALS HAVE BEEN STABLE. PATIENT HAS BEEN PLACED ON CLEAR LIQUID DIET THEN TO NPO AT MIDNIGHT IN PREP FOR GI PROCEDURE IN THE MORNING. PATIENT RESTING IN ROOM AT THIS TIME. WILL CONTINUE TO MONITOR AND PROVIDE CARE NEEDED.
--- NOTE | 2020-06-09 20:29 | NUR ---
ASSUMED CARE. BEATRIZ IS VERY QUITE SPOKEN, SOFT TONE. AOX3. REPORTS PAIN IN HER RIGHT SIDE THAT GOES AWAY WHEN SHE SHIFTS POSITION. LUNG SOUNDS CLEAR, HR ON TELE IS SINUS. REDNESS IN GROIN, CLEANSED, DRY AND APPLIED NYSTATIN POWDER. CATHETER PATENT AND DRAINING. BILATERAL EYES SWELLING HAS NOT CHANGED, SHE STILL UNABLE TO OPEN THEM VERY MUCH. APPLIED EYE DROPS. BTX4 HYPOACTIVE. DENIES ANY NEEDS OR CONCERNS AT THIS TIME. MEDIPORT INFUSING IV FLUIDS. CALL LIGHT IN REACH.
[2020-06-10 06:56] LABS: Hematocrit 25.3 % (33.0-51.0); Mean Corpuscular HGB 31.6 pg (26.0-34.0); Mean Corpuscular HGB Conc 31.6 g/dL (31.5-36.5); Mean Corpuscular Volume 100 fL (80-100); Mean Platelet Volume 11.5 fL (9.1-12.4); Platelet Count 112 K/mm3 (150-400); RDW Coefficient Variation 20.4 % (11.7-14.2); Red Blood Cell Count 2.53 M/mm3 (3.80-5.20); White Blood Cell Count 6.71 K/mm3 (4.00-11.30)
--- NOTE | 2020-06-10 06:58 | NUR ---
SHIFT SUMMARY: PT HAS QUITE VOICE, SOFT SPOKEN, SOMETIMES IS HARD TO HEAR. SLIGHTLY WITHDRAWN. BILATERAL EYES ARE UNCHANGED, SWOLLEN, FIRM, MINIMAL OPENING, VISION DISTURBANCES, DRAINAGE YELLOW SCANT AMOUNT. ABDOMIN PAIN REPORTED ONCE LAST NIGHT ON THE RIGHT SIDE, STATES FELT LIKE STABBING, REPOSITIONING RESOLVED. GLADYS-AREA AND GROIN REDNESS IMPROVING, NYSTATIN USED. CATHETER PATENT AND DRAINING YELLOW URINE. IV CONTINUES TO INFUSE. VS WNL, AFEBRILE. NPO AFTER MIDNIGHT. NO OTHER CHANGES TO REPORT. CALL LIGHT IN REACH.
[2020-06-10 07:13] LABS: Albumin, Blood 1.8 g/dL (3.4-5.0); Albumin/Globulin Ratio 0.4 (0.8-1.8); Bilirubin, Total 0.5 mg/dL (0.1-1.0); Bun/Creatinine Ratio 15.1 (12.0-20.0); Calcium, Blood 8.2 mg/dL (8.5-10.1); Creatinine, Blood 1.52 mg/dL (0.40-1.00); Globulin, Blood 4.4 g/dL (2.2-4.0); Potassium, Blood 3.8 mmol/L (3.5-5.5); Total Protein, Blood 6.2 g/dL (6.4-8.2)
[2020-06-10 08:09] LABS: HBSAG SCREEN Negative (Negative); HEP A AB, IGM Negative (Negative); HEP B CORE AB, IGM Negative (Negative); HEP C VIRUS AB <0.1 (0.0-0.9)
--- NOTE | 2020-06-10 09:47 | NUR ---
PATIENT OFF UNIT TO DAY SURGERY VIA [facility] AT 0945. TELEMETRY REMOVED, MONITOR NOTIFIED.
--- NOTE | 2020-06-10 10:04 | NUR ---
History, Chart, Medications and Allergies reviewed before start of procedure. Patient confirms NPO status and agrees with scheduled surgery. Patient's glasses and dentures left in her room.
--- NOTE | 2020-06-10 10:12 | NUR ---
06/10/20 1012 Tayla Randolph MONITOR INTACT WITH CONTINUOUS PULSE OXIMETRY AND INTERMITTENT BP AT THE START OF PROCEDURE.
--- NOTE | 2020-06-10 11:07 | NUR ---
PATIENT RETURNED FROM DAY SURGERY AT 1040. SLEEPY, AROUSES TO SPEECH, ORIENTED. RE-PLACED CAVITY PUMP OPERATOR, CONTINUOUS OXIMETRY MONITOR; CONFIRMED GOOD WAVE FORM WITH CHAIRMAN EMERITUS. O2 SAT 95-97% ON ROOM AIR. GAVE PT SIPS OF ICE WATER. HAS DIET ORDER FOR ADA DIET.
--- NOTE | 2020-06-10 20:01 | NUR ---
SHIFT SUMMARY: PATIENT RETURNED FROM EGD AT 1040 THIS MORNING, SLEEPY BUT AROUSES TO SPEECH. CG SHAMIR AT BEDSIDE MOST OF THE AFTERNOON. PT HAVING SOME NON VIOLENT HALLUCINATIONS (SEEING HER PUPPY DOWN BY HER FEET, SEES A LITLE BOY AT THE FOOT OF HER BED), POSSIBLY FROM PROPOFOL DURING PROCEDURE. PT IS A MAX 2 PERSON ASSIST TO GET OOB. NO EVENTS ON TELEMETRY, SR 60-70'S. LAI DRAINING ADEQUATE URINE. BM X 3 TODAY. MRI SCREENING FORM FILLED OUT WITH SHAMIR'S ASSISTANCE, FAXED TO IMAGING. BILATERAL EYE CELLULITIS WITH INDURATION, DENIES PAIN.
[2020-06-11 06:46] LABS: Hemoglobin 7.8 g/dL (11.5-16.0); Mean Corpuscular HGB 31.3 pg (26.0-34.0); Mean Corpuscular HGB Conc 31.2 g/dL (31.5-36.5); Mean Corpuscular Volume 100 fL (80-100); Mean Platelet Volume 11.3 fL (9.1-12.4); Platelet Count 114 K/mm3 (150-400); RDW Coefficient Variation 20.9 % (11.7-14.2); RDW Standard Deviation 75.9 fL (35.1-46.3); Red Blood Cell Count 2.49 M/mm3 (3.80-5.20)
[2020-06-11 07:05] LABS: Albumin, Blood 1.8 g/dL (3.4-5.0); Albumin/Globulin Ratio 0.4 (0.8-1.8); Bilirubin, Total 0.6 mg/dL (0.1-1.0); Bun/Creatinine Ratio 13.7 (12.0-20.0); Calcium, Blood 7.9 mg/dL (8.5-10.1); Creatinine, Blood 1.68 mg/dL (0.40-1.00); Globulin, Blood 4.3 g/dL (2.2-4.0); Potassium, Blood 3.8 mmol/L (3.5-5.5); Total Protein, Blood 6.1 g/dL (6.4-8.2)
--- NOTE | 2020-06-11 07:14 | NUR ---
06/11/20 0620 CPAP REMOVED BY PT. YELLING THAT SHE WANTS TO "PET THE CAT." REORIENTED TO SURROUNDINGS. PT HAD SEVERAL EPISODES OF VISUAL HALLUCINATIONS LAST NIGHT. BED ALARM ON. CALL HAND WITHIN REACH BUT FORGETS TO USE IT. VITALS STABLE.LAI CATH DRAINING WELL .
--- NOTE | 2020-06-11 08:40 | NUR ---
PATIENT FEBRILE TO 100.2. OTHER VSS, DENIES PAIN. A&O X 1-2, INSISTING SHE'S GOING HOME TODAY. REPORTED TO DR. NEWSOME, NO NEW ORDERS AT THIS TIME.
--- NOTE | 2020-06-11 17:21 | NUR ---
SPOKE TO PATIENT'S CG SHAMIR BY PHONE AT 1700. SHAMIR STATED THAT PT'S DAUGHTER CHRISTINE THINKS SHE MAY HAVE BEEN EXPOSED TO COVID 19 IN THE PAST FEW DAYS. SHAMIR HAD ARRANGED FOR CHRISTINE TO BE PRESENT IN THE HOME WHEN BEATRIZ IS DISCHARGED SHAMIR IS WORKING UNTIL WEDNESDAY 06/13 NIGHT. IF PATIENT IS TO BE DISCHARGED, THERE WILL BE NO ONE AT THE HOME UNTIL FRIDAY MORNING. PLEASE CALL SHAMIR WHEN D/C IS KNOWN.
--- NOTE | 2020-06-11 19:01 | NUR ---
SHIFT SUMMARY: MENTATION HAS IMPROVED A BIT WITH ADMIN OF D5W; LAST CBG 112. MORE ALERT, BUT STILL CONFUSED AT TIMES. HAD VISIT FROM ESTRANGED DAUGHTER TODAY, WHICH MADE HER VERY HAPPY. NO EVENTS ON TELEMETRY. DENIED PAIN. LAI DRAINING ADEQUATE URINE. NO PT/OT TODAY. PLEASE SEE MY NOTE ABOUT POTENTIAL DISCHARGE PROBLEM IF D/C'D BEFORE FRIDAY. APPETITE OK.
--- NOTE | 2020-06-12 02:42 | NUR ---
06/12/20 0215 PT HAD LARGE SOFT, BROWN BM IN BRIEF. LINENS, GOWN AND BRIEF CHANGED AFTER GOOD GLADYS-CARE GIVEN. SKIN CARE POWDER TO ESCORIATED PERINEAL SKIN. REPOSITIONED TO LEFT SIDE AND SUPPORTED WITH PILLOWS. PT HAD NO COMPLAINTS. CPAP IN PLACE. CONTINUOUS PULSE OXIMETER ON.
[2020-06-12 06:02] LABS: Hematocrit 25.4 % (33.0-51.0); Hemoglobin 7.7 g/dL (11.5-16.0); Mean Corpuscular HGB 30.7 pg (26.0-34.0); Mean Corpuscular HGB Conc 30.3 g/dL (31.5-36.5); Mean Corpuscular Volume 101 fL (80-100); Mean Platelet Volume 11.4 fL (9.1-12.4); Platelet Count 94 K/mm3 (150-400); RDW Coefficient Variation 20.8 % (11.7-14.2); RDW Standard Deviation 76.8 fL (35.1-46.3); Red Blood Cell Count 2.51 M/mm3 (3.80-5.20); White Blood Cell Count 6.92 K/mm3 (4.00-11.30)
[2020-06-12 06:14] LABS: Albumin, Blood 1.8 g/dL (3.4-5.0); Albumin/Globulin Ratio 0.4 (0.8-1.8); Bilirubin, Total 0.6 mg/dL (0.1-1.0); Bun/Creatinine Ratio 14.9 (12.0-20.0); Calcium, Blood 8.1 mg/dL (8.5-10.1); Creatinine, Blood 1.81 mg/dL (0.40-1.00); Globulin, Blood 4.1 g/dL (2.2-4.0); Potassium, Blood 3.7 mmol/L (3.5-5.5); Total Protein, Blood 5.9 g/dL (6.4-8.2)
--- NOTE | 2020-06-12 17:37 | NUR ---
Shift Summary A/Ox2-3, mostly to year/hospital/self. PT/OT worked with patient this shift and reported patient to be 2 very heavy max assist, difficult to get up; however, patient was insistent that she can get up and walk. Patient had 5 bowel movements today, twice were small, three were medium size with some loose/formed yellow stools. Tubbs remains patent and drains to gravity. Scott-area/groin redness present, redness to bilateral lower extremities, and scott-orbital cellulitis remains. Patient has visual hallucinations seeing "a girl sitting on my bed" and stating "there's a dog right there" pointing to floor. Patient has also been attempting to get out of bed; however, is weak and can only manage to get the lower parts of her legs to the side of the bed. Does not follow directions well and hollars for assistance despite patient able to demonstrate how to use the call light. Vital signs have been stable. Denies pain, sob, nausea. Will continue to monitor and report to oncoming Rn.
--- NOTE | 2020-06-13 07:34 | NUR ---
06/13/20 0600 SLIGHT FEVER NOTED THIS AM BUT PT HAD 5 BLANKETS ON HER. RN REMOVED BLANKETS. OTHERWISE VITALS STABLE. TURNED Q 2 HOURS. EYE LIDS STILL VERY SWOLLEN AND PINK. LAI PATENT AND DRAINING WELL CLEAR YELLOW URINE.
--- NOTE | 2020-06-13 10:53 | NUR ---
TELEMETRY RECEIVED VERBAL ORDER FROM DR. NEWSOME TO D/C TELEMETRY. ORDER UPDATED.
[2020-06-13 11:34] LABS: Hemoglobin 7.6 g/dL (11.5-16.0); Mean Corpuscular HGB 31.1 pg (26.0-34.0); Mean Corpuscular HGB Conc 30.4 g/dL (31.5-36.5); Mean Corpuscular Volume 103 fL (80-100); Mean Platelet Volume 11.3 fL (9.1-12.4); NRBC ABSOLUTE 0.02 K/mm3 (0.00-0.02); NRBC Auto 0.3 /100 WBC (0.0-0.2); Platelet Count 93 K/mm3 (150-400); RDW Coefficient Variation 20.9 % (11.7-14.2); RDW Standard Deviation 77.4 fL (35.1-46.3); Red Blood Cell Count 2.44 M/mm3 (3.80-5.20)
[2020-06-13 11:57] LABS: Alanine Aminotransfer (ALT/SGP 76 U/L (12-78); Albumin, Blood 1.7 g/dL (3.4-5.0); Albumin/Globulin Ratio 0.4 (0.8-1.8); Alk Phos 401 U/L (50-136); Anion Gap 8 mmol/L (6-16); Aspartate Aminotrans (AST/SGOT 168 U/L (12-37); Bilirubin, Direct 0.3 mg/dL (0.0-0.3); Bilirubin, Indirect 0.2 mg/dL (0.1-0.7); Bilirubin, Total 0.5 mg/dL (0.1-1.0); Blood Urea Nitrogen 27 mg/dL (8-24); Bun/Creatinine Ratio 13.6 (12.0-20.0); CO2, Blood 19 mmol/L (21-32); Calcium, Blood 7.8 mg/dL (8.5-10.1); Chloride, Blood 119 mmol/L (98-108); Creatinine, Blood 1.99 mg/dL (0.40-1.00); Globulin, Blood 4.2 g/dL (2.2-4.0); Glomerular Filtration Rate 26 (60-); Glucose, Blood 97 mg/dL (70-99); Phosphorus, Blood 4.4 mg/dL (2.5-4.9); Potassium, Blood 3.9 mmol/L (3.5-5.5); Sodium, Blood 146 mmol/L (136-145); Total Protein, Blood 5.9 g/dL (6.4-8.2)
--- NOTE | 2020-06-13 12:06 | NUR ---
Spoke with Dr Mohamud prior to visiting with Pt and discussed case. Pt and family may benefit from discussion regarding goals of care. Pt is resting in bed upon arrival. Pt's eyes are significantly swollen and red. Pt is A&OX3. Pt unable to verbalize appropriate reason for hospital stay. Pt denies pain, dyspnea, and anxiety. Engaged in therapeutic discussion regarding goals of care. Discussed current plan of care and current condition including functional status. Discussed options including potential exploratory surgery and focusing on comfort at home. Continued to explore goals and values with Pt reporting preference of staying at home focusing on comfort and wanting to avoid hospitalizations. Revisted option for surgery if a candidate with Pt stating "I want what ever is best for me". Requested for Pt to elaborte meaning of this statement with Pt appearing to become more confused. Pt states "I want to talk with my daughters". Received verbal permission to call daughters from Pt. Discussed with Pt in the event she can not make decisions for her self who she wants for decision makers. Pt reports she would like her daughters Deedee and Torrie to make decisions. Pt appears to have a low level of understanding and poor insight. Called and spoke with Sophie (Pt's friend and room mate). Provided update and listened as Sophie reports lately she has had to take a caregiver role for Pt with Pt reaching a point to where Sophie isn't able to provide adequate care for Pt. Sophie will reach out to Pt's daughter Deedee via [employer] Messenger and request Deedee to call Palliative Care. Received call from Pt's cheo Mark. Provided update and engaged in therapeutic discussion regarding goals of care. Discussed with Deedee that Pt's wishes for Deedee and Torrie to be decision makers. Relayed Pt's wishes for Pt to see her daughters and discuss goals of care. Deedee reports plan to visit with Pt tomorrow. Deedee lives in [place]. Also discussed the importance of considering a higher level of care for Pt. Called and spoke with Pt's cheo Brownlee. Provided update and discussed goals of care. Torrie reports being estranged from Pt for 20 years. Torrie states she visited with her mom in the hospital on Friday to say her good byes and wants to defer any decisions to Pt's other daughter Deedee. Palliative Care will remain available for supportive and therapeutic visits.
--- NOTE | 2020-06-13 12:29 | NUR ---
Late Entry from pervious visit note. Spoke with Bedside RN Madeline and discussed case. Madeline reports Pt has been hallucinating. Called and spoke with Pt's longtime friend Marisol. Provided update on plan of care. Marisol reports visiting with Pt yesterday and notice Pt appears more confused and is foregetfull. Marisol reports Pt did not remember visiting with her daugher Torrie on Friday. Marisol expressed appreciation of phone call.
--- NOTE | 2020-06-13 17:21 | NUR ---
Initial spiritual care note: I visited pt just after physician left room. Pt had just been informed of metastatic cancer dx. Kisha appeared lethargic. she did not appear to remember physician's visit although it had happened just minutes before. She became tearful when I asked about her family. She told me she has two dtrs and she loves them very much. She appeared incapable to engaging in meaningful conversation and moved in and out of tearfulness without being able to clarify what she was thinking/feeling. That said, she denied pain/discomfort. I held her hand and offered prayer. she appeared irene sleeping when I left room. I will remain available to pt and family.
--- NOTE | 2020-06-13 18:07 | NUR ---
Shift Summary Patient has been hallucinating again seeing animals and plants. She even asked "Can I have some of those plants" pointing to the bathroom door. Voice seems more hoarse and difficulty understanding what patient is trying to say. Results from biopsies from the EGD on the is in, patient has been informed by Dr. Mohamud of results. Patient continues to have loose diarrhea with some formed stools mixed x2 this shift. Appetite is poor and will only drink sips of glucerna with encouragement. Tele has been d/c'd, no acute events with tele prior to d/c. Tele: SR 89. Patient still has continuous biox and keeps pulling off finger probe. Will pass on to see if this can be d/c'd. Otherwise, patient has been pleasant today.
--- NOTE | 2020-06-14 04:35 | NUR ---
SHIFT SUMMARY NO ACUTE CHANGES THIS SHIFT. PT HAS SLEPT ON AND OFF T/O SHIFT, CALLING OUT IF NEEDING SOMETHING. REPOSTIONED Q2 WITH PILLOWS. PT IS LAYING IN BED WITH EYES CLOSED, EVEN AND UNLABORED RESPIRATIONS WITH CPAP IN PLACE. BED IN LOWERED POSITION WITH ALARM IN PLACE. CALL LIGHT AND PERSONAL ITEMS WITH IN REACH. NO APPARENT NEEDS OR DISTRESS AT THIS TIME, WILL CONTINUE TO MONITOR UNTIL REPORT GIVEN TO DAY RN.
[2020-06-14 05:46] LABS: Hematocrit 25.3 % (33.0-51.0); Hemoglobin 7.8 g/dL (11.5-16.0); Mean Corpuscular HGB 31.2 pg (26.0-34.0); Mean Corpuscular HGB Conc 30.8 g/dL (31.5-36.5); Mean Corpuscular Volume 101 fL (80-100); Mean Platelet Volume 11.8 fL (9.1-12.4); NRBC ABSOLUTE 0.02 K/mm3 (0.00-0.02); NRBC Auto 0.3 /100 WBC (0.0-0.2); Platelet Count 90 K/mm3 (150-400); RDW Coefficient Variation 21.3 % (11.7-14.2); RDW Standard Deviation 79.1 fL (35.1-46.3); White Blood Cell Count 6.93 K/mm3 (4.00-11.30)
[2020-06-14 06:03] LABS: Albumin, Blood 1.7 g/dL (3.4-5.0); Albumin/Globulin Ratio 0.4 (0.8-1.8); Bilirubin, Total 0.6 mg/dL (0.1-1.0); Bun/Creatinine Ratio 14.7 (12.0-20.0); Creatinine, Blood 1.9 mg/dL (0.40-1.00); Globulin, Blood 4.4 g/dL (2.2-4.0); Potassium, Blood 3.8 mmol/L (3.5-5.5); Total Protein, Blood 6.1 g/dL (6.4-8.2)
[2020-06-14] MEDS ORDERED: SENNA LAXATIVE8.6 MG PO (06:10)
[2020-06-14] MEDS ORDERED: Loratadine10 MG PO (06:10)
[2020-06-14] MEDS ORDERED: TRAZ100 PO (06:11)
[2020-06-14] MEDS ORDERED: Crestor40 MG PO (06:13)
[2020-06-14] MEDS ORDERED: SULFAMETHOXAZO1 EAC1 PO (06:15)
[2020-06-14 08:09] LABS: COMPLEMENT C3, SERUM 92 mg/dL (82-167); COMPLEMENT C4, SERUM 19 mg/dL (12-38)
--- NOTE | 2020-06-14 11:46 | NUR ---
Dr Mccabe just finishing visiting with Pt when this RN arrived. Spoke with Dr Mccabe and discussed case. Pt's pathology reports comes back for malignancy and no surgical interventions available for Pt. Pt and family would benefit from discussion regarding comfort care and hospice. Pt resting in bed upon arrival. Pt reports mild discomfort in her eyes. Both eyes appear swollen and red. Engaged in therapeutic listening and assessment of Pt's understanding regarding conversation that took place with Dr Mccabe. Pt states there isn't much they can do. Engaged in discussion regarding goals of care including comfort care and hospice as an option. Pt reports wanting to speak with her daughters before making a decision. Continued therapeutic listening and discussion. Pt is requesting to go outside and smoked. Reminded Pt of her difficulty with transfers and requirement of significant assistance. Pt appears to be forgetful and has a low level of understanding. Pt agreeable for continued visits. Spoke with Bedside RN Deedee and discussed case. Palliative Care will F/U when daughter Deedee arrives.
--- NOTE | 2020-06-14 14:00 | NUR ---
Spoke with Dr Thomas as he is leaving Pt's room. Dr Thomas is recommending hospice for Pt. Entered Pt's room with Pt tearful. Pt's friend Bebo at bedside. Offered emotional support and therapeutic listening. Pt states "why me, why did this happen to me". Continued emotional support and validated concerns. Discussed hospice philosophy with V/U made by Bebo and Pt. Pt reports already being established with [facility] and would like to have [facility]. Pt starts to eat her lunch and Bbeo has conversation with this RN outside of Pt's room. Bebo reports ability to assist with care but is not available 3 days a week. She expresses concerns on if Pt's daughter Deedee can assist with care and her reliability. Instructed Bebo concerns will be relayed to caremanager. Attempted to call Pt's daughter Deedee. Left message with request for return phone call. Spoke with Caremanager Page, relayed Pt's choice for [facility] and Bebo's concerns regarding caregiving. Spoke with Bedside RN Deedee and discussed case. Palliative Care will remain available.
[2020-06-14 17:11] LABS: ANTI-DSDNA ANTIBODIES <1 IU/mL (0-9); RNP ANTIBODIES <0.2 AI (0.0-0.9); SJOGREN'S ANTI-SS-A <0.2 AI (0.0-0.9); SJOGREN'S ANTI-SS-B <0.2 AI (0.0-0.9); SMITH ANTIBODIES <0.2 AI (0.0-0.9)
--- NOTE | 2020-06-14 19:13 | NUR ---
SHIFT SUMMARY PT IS AO TO SELF. PT DENIES PAIN, N/V, SOB. PT IS ON BEDREST WITH REPOSITIONING. PLAN IS TO GO HOME ON HOSPICE. PT DAUGHTER IN TODAY AND CARE DISCUSSED WITH PHYSICIAN AND PALLIATIVE CARE. PT IS IN BED, CALL LIGHT IN REACH, BED IN LOW POSITION.
--- NOTE | 2020-06-15 03:29 | NUR ---
SHIFT SUMMARY PATIENT HAD NO ACUTE CHANGES OBSERVED. AXOX 2 AND BEDREST. LAI PATENT AND DRAINING TO GRAVITY FOR RETENTION. MEDIPORT RIGHT CHEST HEPARIN LOCKED. DENIES PAIN, SOB, AND N/V. EYE ORBITAL AREA SWOLLEN AND PINK. STATING 94% ON CONTINUOUS PULSE OXIMETRY. CPAP AT NIGHT. BED ALARM ACTIVATED. CALL LIGHT IN REACH. BED IN LOWEST POSITION. WILL CONTINUE TO MONITOR UNTIL DAY SHIFT NURSE ASSUMES CARE.
--- NOTE | 2020-06-15 17:26 | NUR ---
PT AOX1-2 SOMETIMES HAS MORE CONFUSION. PT LAYING IN BED NEEDS TURNED EVERY COUPLE HOURS. PT STILL HAS EYES SWOLLEN SHUT AND TREATED PER EMAR. PT'S POLST CHANGED TO DNR AND PURPLE BRACELET WAS PLACED AFTER VERIFICATION WITH PALLIATIVE CARE NURSE. WILL CONTINUE TO MONITOR.
--- NOTE | 2020-06-15 18:39 | NUR ---
Spiritual care note: POLST completed with dtr. Pt is too confused to carry meaningful conversation. Dtr, Deedee, has recently arrived from [facility] to care for pt. Listened to family stories and provided anticipatory bereavement probation counselor to good effect. Prayer for a peaceful transition concluded visit. [facility] services will remain available.
--- NOTE | 2020-06-16 04:01 | NUR ---
SHIFT SUMMARY PATIENT HAD NO ACUTE CHANGES OBSERVED. AXOX 2 AND BEDREST. LAI PATENT AND DRAINING TO GRAVITY FOR RETENTION. DENIES PAIN, SOB, AND N/V. EYES REMAIN SWOLLEN. ON CONTINUOUS PULSE OXIMETRY STATING 95% ON ROOM AIR. VSS/AFEBRILE. MEDIPORT RIGHT CHEST INTACT. BED IN LOWEST POSITION AND ALARM ACTIVATED. CALL LIGHT IN REACH. WILL CONTINUE TO MONITOR UNTIL DAY SHIFT NURSE ASSUMES CARE.
--- NOTE | 2020-06-16 16:59 | NUR ---
NO ACUTE CHANGES TODAY. PT HAS BEEN AOX2 AND COOPERATIVE OF CARE. PT STILL CONFUSED AND WILL CALL OUT WITHOUT USING CALL LIGHT. PT IS INCONTENT OF BOWEL AND HAS LAI IN PLACE. PT TURNED Q 2 HRS. PT RESTING AT THIS TIME WILL CONTINUE TO MONITOR.
--- NOTE | 2020-06-17 04:31 | NUR ---
SHIFT SUMMARY- PT. ALERT W/INTERMITTENT CONFUSION. BEDRIDDEN, Q2HR TURNS. HAD NO ACUTE EVENTS OVERNIGHT. APPEARED TO BE SLEEPING COMFORTABLY T/O THE NIGHT, NO APPARENT DISTRESS NOTED. INCONTINENT, ATTENDS IN PLACE, LAI CATHETER PATENT AND DRAINING. NO COMPLAINTS T/O THE NIGHT. VSS. PLAN FOR POSS D/C ON HOSPICE IN THE AM. CALL LIGHT WITHIN REACH, SIDE RAILS UPX3, AND BED ALARM ON FOR SAFETY. WILL CONT TO MONITOR.
--- NOTE | 2020-06-17 11:48 | NUR ---
PT DISCHARGED AT APPROX 1130 VIA [facility]. PT IS GOING HOME WITH HOSPICE CARE. NO IV IN PLACE AT TIME OF DC, LAI STILL IN PLACE. LAI DRAINING BAG REPLACED BEFORE DC, LAI PATENT AND DRAINING. DC PAPERWORK PLACED WITH PATIENT BELONGINGS, WELL DENTURES.
[2020-06-20 07:09] LABS: CK-BB 0 % (0); CK-MB 0 % (0-3); CK-MM 100 % (97-100); MACRO TYPE 1 0 % (Not Observed); MACRO TYPE 2 0 % (Not Observed)
== END 2020-06-17 11:30 | disposition hospice, home (50) | DRG 682 ==
LOC: ER 11:18 → MEDS 17:12
PROVIDERS: Emergency Medicine; Internal Medicine; Internal Medicine Hematology & Oncology; Nurse Practitioner Acute Care; Student in an Organized Health Care Education/Training Program; ADMIT Internal Medicine
PROC: 0DB68ZX Excision of Stomach, Via Natural or Artificial Opening Endoscopic, Diagnostic (ICD-10-PCS; 2020-06-10)
PROC: 0DB98ZX Excision of Duodenum, Via Natural or Artificial Opening Endoscopic, Diagnostic (ICD-10-PCS; principal; 2020-06-10 09:15)
DX: N17.9 Acute kidney failure, unspecified (principal); G92 Toxic encephalopathy; J44.0 Chronic obstructive pulmonary disease with (acute) lower respiratory infection; H05.013 Cellulitis of bilateral orbits; C78.89 Secondary malignant neoplasm of other digestive organs; C78.7 Secondary malignant neoplasm of liver and intrahepatic bile duct; E87.0 Hyperosmolality and hypernatremia; I24.8 Other forms of acute ischemic heart disease; Z66 Do not resuscitate; Z51.5 Encounter for palliative care; Z20.828 Contact with and (suspected) exposure to other viral communicable diseases; K28.9 Gastrojejunal ulcer, unspecified as acute or chronic, without hemorrhage or perforation; G47.33 Obstructive sleep apnea (adult) (pediatric); N13.30 Unspecified hydronephrosis; K31.9 Disease of stomach and duodenum, unspecified; K74.60 Unspecified cirrhosis of liver; R33.9 Retention of urine, unspecified; C50.919 Malignant neoplasm of unspecified site of unspecified female breast; Z17.0 Estrogen receptor positive status [ER+]; E11.40 Type 2 diabetes mellitus with diabetic neuropathy, unspecified; F32.9 Major depressive disorder, single episode, unspecified; D63.8 Anemia in other chronic diseases classified elsewhere; D69.6 Thrombocytopenia, unspecified; E87.6 Hypokalemia; N18.9 Chronic kidney disease, unspecified; I12.9 Hypertensive chronic kidney disease with stage 1 through stage 4 chronic kidney disease, or unspecified chronic kidney disease; E11.22 Type 2 diabetes mellitus with diabetic chronic kidney disease; L30.4 Erythema intertrigo; E78.5 Hyperlipidemia, unspecified; J44.9 Chronic obstructive pulmonary disease, unspecified; E88.09 Other disorders of plasma-protein metabolism, not elsewhere classified; R62.7 Adult failure to thrive; F17.200 Nicotine dependence, unspecified, uncomplicated; E66.9 Obesity, unspecified; Z68.31 Body mass index [BMI] 31.0-31.9, adult; Z88.5 Allergy status to narcotic agent; Z88.0 Allergy status to penicillin; Z92.21 Personal history of antineoplastic chemotherapy; Z90.10 Acquired absence of unspecified breast and nipple; Z98.84 Bariatric surgery status; Z79.811 Long term (current) use of aromatase inhibitors; Z79.84 Long term (current) use of oral hypoglycemic drugs; Z79.51 Long term (current) use of inhaled steroids; Z79.899 Other long term (current) drug therapy
CPT/HCPCS: 36415; 51702; 74181; 76770; 80053; 80069; 80074; 81001; 82248; 82550; 82552; 82803; 82947; 83735; 83880; 84100; 84484; 85025; 85027; 86160; 86225; 86235; 87086; 88305; 88341; 88342; 93005; 93010; 94640; 94660; 94760; 94762; 96360; 97110; 97162; 97165; 97530; 97535; 99285-25; A9270; A9270-GY; C9113; J1642; J1644; J2704; J7030; J7070; J7120; U0004